=== PATIENT | female | born 1960 | race Caucasian/White ===

== ENCOUNTER 2019-10-30 16:34 | Emergency (ER) | payer BC, SELFPAY ==
--- NOTE | 2019-10-30 16:38 | ED.EAR ---
HPI - Ear Problem General Chief complaint: Ear Stated complaint: ear pain Time Seen by Provider: 10/30/19 16:38 Source: patient and RN notes reviewed Mode of arrival: ambulatory Limitations: no limitations History of Present Illness HPI Narrative: The obese patient-- a non-smoker/ rare drinker on several meds including insulin-- presents with left ear discomfort. Patient states she has a week and a half history of mild left ear discomfort by tragus. Symptoms are mild, slightly worse with palpation, unrelieved with previous called in Z-pack. No fever, URI/sinusitis, bruxism/ teeth grind, TMJ pain, toothache, parotid pain, discharge, tinnitus, vertigo, headache; discussed will treat broadly [for above causes] Related Data Home Medications Medication Instructions Recorded Confirmed cholecalciferol (vitamin D3) 10 mcg PO DAILY 10/30/19 10/30/19 [Vitamin D3] empagliflozin-metformin [Synjardy 1 ea PO DAILY 10/30/19 10/30/19 XR] Allergies Allergy/AdvReac Type Severity Reaction Status Date / Time adhesive tape Allergy Intermediate RASH Verified 09/15/19 15:56 latex Allergy Unknown Unknown Verified 09/15/19 15:56 levofloxacin Allergy Unknown Unknown Verified 09/15/19 15:56 penicillin G Allergy Unknown Unknown Verified 09/15/19 15:56 Penicillins Allergy Unknown Unknown Verified 09/15/19 15:56 Sulfa (Sulfonamide Allergy Unknown Unknown Verified 09/15/19 15:56 Antibiotics) Review of Systems Review of Systems: Narrative: General/Constitutional: No weight loss,fever Eyes: N0: Redness,discharge Ears/Nose/Throat: No: Epistaxis,ear discharge Respiratory: Denies: Hemoptysis Gastrointestinal: No Vomiting, Bleeding-rectal Skin: No Lumps, eruption Neurologic: No Focal Weakness,Sz Hematologic: Denies: Petechiae/Purpura Psychiatric: No: Suicida ideationl All Other Systems: Reviewed and Negative PMFSH Social History Social History Smoking status: Never smoker Alcohol intake: never Comments At time of signature, agree with nursing past medical, surgical, social and family history. There is no relevant family history pertinent to the presenting complaint Exam Narrative: Exam Narrative: General Appearance: Well appearing, Obese/ Well nourished, No distress EYE: PERRLA , EOMI Ears: External ear normal, TM's benign Auditory canal normal dry Nose: Normal nose, Nares clear Mouth/Throat: Normal appearing, Normal lips, parotid/ glands nontender Neck: Supple, No adenopathy Respiratory: Airway patent, No respiratory distress Skin: Warm, Dry Neurological: A&O x3, CN II-X intact Psychiatric: Normal mood, Normal affect general Course Vital Signs Vital signs: Vital Signs Temperature 98.5 F 10/30/19 16:43 Pulse Rate 87 10/30/19 16:43 Respiratory Rate 20 10/30/19 16:43 Blood Pressure 126/70 10/30/19 16:43 Pulse Oximetry 97 10/30/19 16:43 Temperature 98.5 F 10/30/19 16:43 Pulse Rate 87 10/30/19 16:43 Respiratory Rate 20 10/30/19 16:43 Blood Pressure 126/70 10/30/19 16:43 Pulse Oximetry 97 10/30/19 16:43 Medical Decision Making Vital Signs Vital Signs: Vital Signs Temperature 98.5 F 10/30/19 16:43 Pulse Rate 87 10/30/19 16:43 Respiratory Rate 20 10/30/19 16:43 Blood Pressure 126/70 10/30/19 16:43 Pulse Oximetry 97 10/30/19 16:43 Temperature 98.5 F 10/30/19 16:43 Pulse Rate 87 10/30/19 16:43 Respiratory Rate 20 10/30/19 16:43 Blood Pressure 126/70 10/30/19 16:43 Pulse Oximetry 97 10/30/19 16:43 Discharge Plan Discharge Clinical Impression: Otalgia, left ear Patient Disposition: Home, Self-Care Condition: Stable Instructions: Antibiotic Form, Otitis Externa (ED) Prescriptions: New ciprofloxacin HCl 250 mg tablet 250 mg PO Q12H Qty: 10 RF: 0 tramadol 50 mg tablet 50 mg PO Q6H PRN (Reason: pain) Qty: 15 RF: 1 ciprofloxacin HCl 0.3 % drops
[2019-10-30 16:43] VITALS: BP 126/70; PULSE 87; RESP 20; TEMP 36.9; O2SAT 97
== END 2019-10-30 17:25 | disposition home or self-care (01) ==
PROVIDERS: Emergency Provider Emergency Medicine; PCP Family Medicine
DX: H92.02 Otalgia, left ear (principal); E78.00 Pure hypercholesterolemia, unspecified; I10 Essential (primary) hypertension; J45.909 Unspecified asthma, uncomplicated; G47.30 Sleep apnea, unspecified; M19.90 Unspecified osteoarthritis, unspecified site; E11.9 Type 2 diabetes mellitus without complications; F41.9 Anxiety disorder, unspecified
CPT/HCPCS: 99213; G0463

== ENCOUNTER 2020-05-22 10:49 | Outpatient (CLI) | payer BC, SELFPAY ==
[2020-05-22 11:21] LABS: Hematocrit 44.9 % (37.0-47.0)
--- NOTE | 2020-05-22 11:29 | ECG_ITS ---
Measurements Intervals [place] Rate: 71 P: 61 PA: 201 QRS: 19 QRSD: 103 T: 66 QT: 409 QTc: 446 Interpretive Statements SINUS RHYTHM BORDERLINE AV CONDUCTION DELAY BORDERLINE R WAVE PROGRESSION, ANTERIOR LEADS CONSIDER INFERIOR INFARCT, AGE INDETERMINATE BORDERLINE ST-T WAVE ABNORMALITY- HIGH LATERAL LEADS BASELINE WANDER- I, II, III, AVR, AVL, AVF ABNORMAL ECG Electronically Signed On 05-22-2020 11:58:23 CDT by Ashkan Frye D.O.
[2020-05-22 11:32] LABS: Albumin Level 4.6 g/dL (3.5-5.1); Estimated Glomerular Filt Rate > 60; Glucose 109 mg/dL (65-105)
[2020-05-22 11:34] LABS: Urine Cotinine NEGATIVE
[2020-05-22 11:34] LABS: Hemoglobin A1C 6.9 % (<5.7)
== END 2020-05-22 10:50 | disposition home or self-care (01) ==
PROVIDERS: PCP Family Medicine; Visit Provider Orthopaedic Surgery
DX: E78.2 Mixed hyperlipidemia (principal); I10 Essential (primary) hypertension; E11.9 Type 2 diabetes mellitus without complications; M17.11 Unilateral primary osteoarthritis, right knee
CPT/HCPCS: 80307; 82040; 82565; 82947; 83036; 85014; 85018; 93005

== ENCOUNTER 2020-06-01 11:48 | Outpatient (CLI) | payer BC, SELFPAY ==
[2020-06-01 13:03] LABS: Basophils Absolute Auto 0.1 K/mm3 (0.0-0.1); Basophils Percent Auto 0.7 % (0.2-1.2); Eosinophils Absolute Auto 0.3 K/mm3 (0-0.3); Eosinophils Percent Auto 2.2 % (0-4.4); Hematocrit 42.1 % (37.0-47.0); Immature Granulocyte Absolute 0.05 K/mm3 (0.00-0.031); Immature Granulocyte Percent A 0.4 % (0-0.5); Lymphocytes Absolute Auto 3.31 K/mm3 (0.9-3.2); Lymphocytes Percent Auto 24.9 % (18.3-44.2); Mean Corpuscular HGB Conc 33.3 g/dl (32-36); Mean Corpuscular Hemoglobin 32.1 pg (26-34); Mean Corpuscular Volume 96.6 fl (80-100); Mean Platelet Volume 8.9 fl (7.4-10.4); Monocytes Absolute Auto 0.9 K/mm3 (0.1-0.6); Neutrophils Absolute Auto 8.6 K/mm3 (1.3-6.7); Neutrophils Percent Auto 64.8 % (45.5-73.1); Platelet Count Result 295 k/mm3 (150-375); Red Blood Count 4.36 M/mm3 (4.2-5.4); Red Cell Distribution Width 12.4 % (11.5-14.5); White Blood Count 13.3 K/mm3 (4.5-10.0)
[2020-06-01 13:17] LABS: Anion Gap 7 mmol/L (8-16); Blood Urea Nitrogen 25 mg/dL (7-17); Calcium 9.6 mg/dL (8.4-10.2); Carbon Dioxide 27 mmol/L (22-30); Chloride 103 mmol/L (98-107); Estimated Glomerular Filt Rate > 60; Glucose 84 mg/dL (65-105); Potassium 4.6 mmol/L (3.4-5.0); Sodium 137 mmol/L (137-145)
== END 2020-06-01 11:49 | disposition home or self-care (01) ==
LOC: ANHSURGERY 11:52
PROVIDERS: Anesthesiology; PCP Family Medicine; Visit Provider Orthopaedic Surgery
DX: M17.11 Unilateral primary osteoarthritis, right knee (principal); E11.65 Type 2 diabetes mellitus with hyperglycemia; Z01.818 Encounter for other preprocedural examination
CPT/HCPCS: 36415; 80048; 85025; 86850; 86900; 86901; 87081

== ENCOUNTER 2020-07-17 09:14 | Outpatient (CLI) | payer BC, SELFPAY ==
[2020-07-17 09:55] LABS: Anion Gap 4 mmol/L (8-16); Blood Urea Nitrogen 9 mg/dL (7-17); Calcium 9.2 mg/dL (8.4-10.2); Carbon Dioxide 33 mmol/L (22-30); Chloride 104 mmol/L (98-107); Cholesterol 158 mg/dL (0-200); Estimated Glomerular Filt Rate > 60; Glucose 103 mg/dL (65-105); HDL Direct 51 mg/dL; Potassium 4.7 mmol/L (3.4-5.0); Sodium 141 mmol/L (137-145); Triglycerides 143 mg/dL (<150)
[2020-07-17 10:05] LABS: LDL Cholesterol Direct 79 mg/dL
== END 2020-07-17 09:15 | disposition home or self-care (01) ==
LOC: ANHLAB 09:16
PROVIDERS: PCP Family Medicine; Visit Provider Physician Assistant
DX: E11.65 Type 2 diabetes mellitus with hyperglycemia (principal); E78.5 Hyperlipidemia, unspecified
CPT/HCPCS: 36415; 80048; 80061; 84443

== ENCOUNTER 2020-08-23 09:55 | Outpatient (CLI) | payer BC, SELFPAY ==
[2020-08-23 11:07] LABS: Basophils Absolute Auto 0.1 K/mm3 (0.0-0.1); Basophils Percent Auto 0.6 % (0.2-1.2); Eosinophils Absolute Auto 0.3 K/mm3 (0-0.3); Eosinophils Percent Auto 3.4 % (0-4.4); Hematocrit 44.9 % (37.0-47.0); Hemoglobin 14.6 g/dL (12.0-15.0); Immature Granulocyte Absolute 0.02 K/mm3 (0.00-0.031); Immature Granulocyte Percent A 0.2 % (0-0.5); Lymphocytes Absolute Auto 2.31 K/mm3 (0.9-3.2); Lymphocytes Percent Auto 26.5 % (18.3-44.2); Mean Corpuscular HGB Conc 32.5 g/dl (32-36); Mean Corpuscular Hemoglobin 30.9 pg (26-34); Mean Corpuscular Volume 95.1 fl (80-100); Monocytes Absolute Auto 0.6 K/mm3 (0.1-0.6); Monocytes Percent Auto 6.5 % (2.6-8.5); Neutrophils Absolute Auto 5.5 K/mm3 (1.3-6.7); Neutrophils Percent Auto 62.8 % (45.5-73.1); Platelet Count Result 300 k/mm3 (150-375); Red Blood Count 4.72 M/mm3 (4.2-5.4); Red Cell Distribution Width 12.8 % (11.5-14.5); White Blood Count 8.7 K/mm3 (4.5-10.0)
[2020-08-23 11:27] LABS: Albumin Level 4.2 g/dL (3.5-5.1)
[2020-08-23 11:30] LABS: Hemoglobin A1C 5.2 % (<5.7)
[2020-08-23 13:37] LABS: Urine Cotinine NEGATIVE
== END 2020-08-23 09:56 | disposition home or self-care (01) ==
LOC: ANHSURGERY 09:58
PROVIDERS: PCP Family Medicine; Visit Provider Orthopaedic Surgery
DX: M17.11 Unilateral primary osteoarthritis, right knee (principal); Z51.81 Encounter for therapeutic drug level monitoring; Z79.899 Other long term (current) drug therapy
CPT/HCPCS: 80307; 82040; 83036; 85025; 86850; 86900; 86901; 87081

== ENCOUNTER → 2020-09-02 00:31 | Outpatient (CLI) | payer BC, SELFPAY ==
[2020-09-02 20:39] LABS: SARS-CoV-2 RNA PCR Negative
== END ==
PROVIDERS: PCP Family Medicine; Visit Provider Orthopaedic Surgery
DX: Z01.812 Encounter for preprocedural laboratory examination (principal); Z20.822 Contact with and (suspected) exposure to COVID-19
CPT/HCPCS: C9803; U0003; U0005

== ENCOUNTER 2020-09-05 01:45 | Day surgery (SDC) | payer BC, SELFPAY ==
[2020-06-01 12:00] VITALS: BMI 38.4
[2020-06-01 12:17] VITALS: BP 106/52; PULSE 72; RESP 20; TEMP 36.6; O2SAT 98
--- NOTE | 2020-06-01 12:49 | PC.NURSE ---
PT HERE FOR PRE-OP INTERVIEW, MENTIONED UPPER TOOTH EXTRACTED 01/19/20 AND WAS AT THE DENTIST 05/29/20 FOR PROCEDURE ON THE SOCKET - DENTIST DR. TURNER OFFICE CALLED SPOKE WITH GIUSEPPENA - STATES PT TOOK CLINDAMYCIN PROPHYLACTICALLY AND ROOT CANNEL STARTED WITH PT TO CALL BACK AFTER KNEE SURGERY FOR COMPLETION. DR. BYRNES'S OFFICE CALLED AND SPOKE WITH AILEEN AND INFORMED OF ABOVE - STATES WILL INFORM DR. BYRNES AND WILL CONTACT PT. PT INFORMED DR. BYRNES'S OFFICE WILL BE CALLING IN REGARDS TO PROCEEDING OR POSTPONING SURGERY - UNDERSTANDING VOICED.
[2020-08-23 10:04] VITALS: BMI 37.3
[2020-08-23 10:41] VITALS: BP 125/63; PULSE 72; RESP 16; TEMP 36.6; O2SAT 98
--- NOTE | 2020-09-04 10:58 | WPDANESEPPF ---
Anes - Initial Pre Proc Eval Procedure: Operation Date: 09/05/20 07:30 Proposed Procedures p Right Total Knee Arthroplasty - Kurt Hutchins MD Date/Time: 09/04/20 10:58 Surgeon: Kurt Hutchins MD Pre Op Diagnosis: DJD right knee Patient Data Age: 60 Gender: F Height: 1.65 m Weight: 101.9 kg Last Vital Signs Temp 36.6 C 08/23/20 10:41 Pulse 72 08/23/20 10:41 Resp 16 08/23/20 10:41 BP 125/63 08/23/20 10:41 Pulse Ox 98 08/23/20 10:41 Allergies Allergy/AdvReac Type Severity Reaction Status Date / Time adhesive tape Allergy Intermediate RASH Verified 09/05/20 06:58 levofloxacin Allergy Unknown Nausea and Verified 09/05/20 06:58 Vomiting Penicillins Allergy Unknown Unknown - Verified 09/05/20 06:58 A CHILD Home Medications Medication Instructions Recorded Confirmed Type rosuvastatin 20 mg tablet 20 mg PO DAILY #90 tablet 03/30/20 09/05/20 Rx lisinopril 10 mg tablet 10 mg PO DAILY 90 Days #90 tablet 05/10/20 09/05/20 Rx apple cider vinegar 450 mg PO DAILY 06/01/20 09/05/20 History magnesium 400 mg PO DAILY 06/01/20 09/05/20 History Ozempic 1 mg/dose (2 mg/1.5 mL) 1 mg SUB-Q WEEKLY 90 Days #9 ml NS 07/19/20 09/05/20 Rx subcutaneous pen injector Tresiba FlexTouch U-200 200 130 unit SUBCUT QPM 90 Days #63 ml 07/19/20 09/05/20 Rx unit/mL (3 mL) subcutaneous pen NS pen needle, diabetic 32 gauge x #200 ea 07/19/20 08/24/20 Rx 1/4 empagliflozin 12.5 mg-metformin ER 2 tablet PO QAM 90 Days #180 each 07/25/20 09/05/20 Rx 1,000 mg tablet,extended rel 24 hr cholecalciferol (vitamin D3) 100 mcg PO DAILY 08/23/20 09/05/20 History citalopram 40 mg PO QAM 08/23/20 09/05/20 History ibuprofen 800 mg PO Q6H PRN 08/23/20 09/05/20 History Patient hx anesthesia problems: none Family hx anesthesia problems: none PMFSH Past Medical History Medical History (Updated 09/04/20 @ 11:00 by Servando Katz MD) Essential hypertension Fatty liver Hyperlipidemia, unspecified Mixed hyperlipidemia Morbid obesity YURIY on CPAP Osteoarthritis of right knee Type 2 diabetes mellitus with hyperglycemia Type 2 diabetes mellitus without complications Surgical History Surgical History Status post total knee replacement, left Family History Family History Father Hypertension Family history of diabetes mellitus in first degree relative Family history of congenital heart disease Family history of arthritis Mother Hypertension Family history of diabetes mellitus in first degree relative Family history of malignant neoplasm of kidney Family history of malignant neoplasm of uterus Family history of arthritis Family history of malignant neoplasm Sibling Family history of kidney disease Family history of diabetes mellitus in first degree relative Family history of malignant neoplasm of uterus Family history of arthritis Family history of malignant neoplasm Other Diabetes mellitus Family history of Alzheimer's disease Family history of attention deficit hyperactivity disorder (ADHD) Family history of cardiovascular disease Family history of elevated blood lipids Family history of migraine headaches Family history of obesity Family history of thyroid disease Social History Social History Smoking status: Never smoker Additional smoking assessment comments: DENIES ANY FORM OF TOBACCO USE Alcohol intake: never Alcohol use details: 2 DRINKS PER MONTH Substance use: never Substance use type: does not use Living arrangements: with family Spiritual care concerns: No Anes - Eval Final PreProcedure Day of Procedure 09/04/20 10:58 Patient weight: obese Heart: regular rate and rhythm Lungs: clear to auscultation and normal air movement Airway: Mallampati scale class II Neurologic
--- NOTE | 2020-09-04 11:00 | WPDANESPNB ---
Anes - Peripheral Nerve Block Date/Time: 09/04/20 11:00 I have discussed with the patient/family/POA the placement of a peripheral nerve block for post-operative pain management, including associated risks, benefits, complications, and side effects. Alternative methods of post-operative analgesia were detailed. Questions were solicited and answers provided to the satisfaction of the patient/family/POA. Time-Out: A pre-procedural Time-Out was completed immediately before starting the procedure and confirmed: Patient Identification, Site, Procedure, Patient Position and the Availability of Requisite Equipment. Clinical Indications: Acute post-operative pain management requested by the operative surgeon. Nerve Block Insertion Note Anes-nerve block: adductor canal right Patient position: supine Skin prep: chlorhexidine Needle: 22 gauge, stimulating, insulated echogenic needle. Needle length: 80 mm Technique: ultrasound Technique comment: in plane Injectate: bupivacaine 0.5% with epi 5 mcg/ml (30cc) Observations: tolerated well Complications: none Procedure start time:: 715 Procedure end time::
[2020-09-05] VITALS (15 sets, daily range): BP systolic 100–120; BP diastolic 58–71; PULSE 69–94; RESP 14–21; TEMP 35.8–36.7; O2SAT 93–100; BMI 38.9
--- NOTE | ~2020-09-05 | XR_ITS ---
EXAMINATION: XR knee RT 2V DATE: 09/05/2020 09:56 INDICATION: Total right knee arthroplasty. Postop. TECHNIQUE: 2 views of right knee were obtained. COMPARISON: Right knee radiographs 05/22/2020 FINDINGS: There is a total right knee arthroplasty in near-anatomic alignment with patellar resurfaci ng. No fracture. There is gas in the soft tissues, consistent with recent surgery. IMPRESSION: 1. Total right knee arthroplasty in near-anatomic alignment. Reviewed, dictated and finalized at location A. ATER
[2020-09-05] MEDS: ACETAMINOPHEN 500 MG TABLET 1000 MG PO (06:38)
[2020-09-05] MEDS: LACTATED RINGERS 1,000 ML 30 ML IV CONT ×2 (06:45→09:43)
[2020-09-05] MEDS: TRANEXAMIC ACID 1,000MG/ISO100 1,000 MG/100 ML BAG 200 MG IVPB (06:47)
[2020-09-05 06:52] LABS: Glucose Point of Care 107 (65-105)
--- NOTE | 2020-09-05 07:13 | WPDHPUPDATE1 ---
History and Physical Update Update Date/Time: 09/05/20 07:13 History and Physical has been reviewed, including an updated exam of the patient. There are NO changes in the patient's condition. Risks, benefits, and alternatives have been discussed and questions answered. Patient agrees to proceed with procedure.
[2020-09-05] MEDS: CLINDAMYCIN 900 MG/D5W 50 ML 900 MG/50 ML PIGGYBACK 50 MG IVPB (07:26)
[2020-09-05] MEDS: GENTAMICIN BONE CEMENT REFOBACIN 1 EACH TOPICAL (08:50)
--- NOTE | 2020-09-05 09:52 | PM.PROC ---
Procedure Note - Detailed Date of procedure: 09/05/20 Pre-op diagnosis: DJD right knee Post-op diagnosis: same Procedure performed: Total knee arthroplasty, right. Description of procedure: Severe patellofemoral arthritis. Mild patellofemoral dysplasia. Patella was very thin laterally but thicker medially. This allowed for very conservative patellar resection. The Tritanium 3D printed porous implant was used to minimize stress risers. This matched the procedure on the contralateral knee which is performing very well. Bone quality was satisfactory. Standard bone resections were performed. The tibia resection was conservative as the patient was quite lax without any contractures preoperatively. Implants: Silvestre Triathlon size 3 press-fit femur, size 4 cemented low-profile tibia, 11 mm CR polyethylene insert, 29 mm asymmetric Tritanium metal backed patellar component. Anesthesia: GETA and regional (subsartorial nerve block) Surgeon: Kurt Hutchins MD Ride Operator: Yuliana Aguirre PA-C Estimated blood loss (mL): 200 Drains: No Complications: None Condition: stable Disposition: PACU Findings: Physician bindery assistant, Yuliana Aguirre PA-C, required for surgery; including patient positioning, draping, tissue retraction, maintaining instrument position, cement removal, wound closure, and dressing placement. OPERATIVE DETAILS: The patient was given a nerve block preoperatively, and then brought to the operating room. A general anesthetic was administered. The leg was prepped and draped in the usual sterile fashion. The limb was elevated and the tourniquet inflated to 300 mmHg during initial exposure, and cementation. A longitudinal incision was created along the medial border of the patella and patellar tendon, and a minimally invasive optimized mid-vastus approach to the knee was performed. A mild medial release was taken. The knee was then flexed. The osteophytes were carefully removed. The intramedullary guide was placed in the femoral canal. The distal femoral resection was then taken with the oscillating saw. The collateral ligaments were carefully protected. The tibia was carefully exposed. The jig was applied, and the proximal tibia was resected according to preoperative plan. The knee was balanced in extension. Appropriate releases were taken where needed. The anterior cruciate ligament and meniscal remnants were removed. The posterior cruciate ligament was preserved. The patella was measured. Patellar resection was carried out with the oscillating saw. The lug holes drilled. The femur was sized and rotation assessed using a combination of gap balancing, posterior referencing, and the AP axis. The 4 in 1 cutting block was used to finish the femoral cuts after equal gaps were assured. The lug holes were drilled. The osteophytes were carefully removed from the back of the knee. The knee was copiously irrigated with antibiotic solution periodically throughout the procedure. The meniscal remnants were removed. The spacer block was used to confirm equal flexion and extension gaps. Further releases were performed as needed. The tibia was sized and broached. The bony surfaces were prepared for cementing with pulsatile lavage. The real tibial component was cemented into position followed by press fitting the femoral component. Excess cement was carefully removed. The patella component was press-fit. Patellar tracking was carefully assessed. No additional releases were required. The wound was closed with #1 Vycril suture, #2 Quill suture, 0-Quill suture, and 2-0 Quill suture followed by Steri-Strips. A sterile bulky dressing was applied. Meticulous hemostasis was maintained throughout the procedure. There were no complications. The patient was extubated and brought to the recovery room in stable condition after the application of sterile dressing with Gerry bandage.
[2020-09-05] MEDS: fentaNYL CITRATE INJ (*CRX) 100 MCG/2 ML VIAL 25 MCG IV PUSH ×4 (09:54→10:06)
[2020-09-05 09:55] LABS: Glucose Point of Care 104 (65-105)
[2020-09-05] MEDS: HYDROmorphone HCL INJ (*CRX) 1 MG/ML SYR 0.25 MG IV PUSH (10:09)
--- NOTE | 2020-09-05 11:11 | ADMGEN ---
This patient, Carina Molina, was admitted to 2 Medical Room 243-. Patient/family oriented to hospital policies and general routines including ID bracelet, bed and alarms, visiting hours, pain management, procedures, bathroom and other care routines, personal items, smoking policy, room service/diet, and visiting hours. Arrived from surgery via bed, doing well. Information on how to activate the Rapid Response Team has been discussed. Patient/Family are encouraged to report perceived risks to care and to ask questions if they do not understand what they are told or what they should do.
[2020-09-05 11:24] LABS: Glucose Point of Care 96 (65-105)
[2020-09-05] MEDS: ROSUVASTATIN 10 MG TABLET 20 MG PO (12:15)
[2020-09-05] MEDS: lisinopriL 10 MG TABLET PO (12:15)
[2020-09-05] MEDS: oxyCODONE HCL (*CRX) 5 MG TAB IR 10 MG PO ×3 (12:16→22:00)
--- NOTE | 2020-09-05 13:30 | WPDCN ---
Assessment and Plan Assessment and plan (1) Osteoarthritis of right knee: Qualifiers: Osteoarthritis type: primary Qualified Code(s): M17.11 - Unilateral primary osteoarthritis, right knee Code(s): M17.11 - Unilateral primary osteoarthritis, right knee Status: Acute (2) Insulin dependent type 2 diabetes mellitus: Code(s): E11.9 - Type 2 diabetes mellitus without complications; Z79.4 - classics teacher (current) use of insulin Status: Acute (3) Essential hypertension: Code(s): I10 - Essential (primary) hypertension Status: Acute (4) Mixed hyperlipidemia: Code(s): E78.2 - Mixed hyperlipidemia Status: Acute (5) Obstructive sleep apnea on CPAP: Code(s): G47.33 - Obstructive sleep apnea (adult) (pediatric); Z99.89 - Dependence on other enabling machines and devices Status: Acute (6) Depression with anxiety: Code(s): F41.8 - Other specified anxiety disorders Status: Acute (7) History of arthroplasty of right knee: Onset Date: ~09/05/20 Code(s): Z96.651 - Presence of right artificial knee joint Status: Acute Additional Plan The patient is postoperative day #0, status post right total knee replacement per Dr. Hutchins. Wound care and pain control will be deferred to Dr. Hutchins as well as DVT prophylaxis. Her blood pressures were reviewed and they have been stable postoperatively, and her antihypertensives have been resumed. Basal insulin has been resumed as well and she has been started on sliding scale insulin with Accu-Cheks with meals and at bedtime. Check hemoglobin A1c. CPAP will be provided for the patient to use while hospitalized. The rest of her home medications will be reviewed and resumed as appropriate. Thank you for allowing us to participate in this patient's care. Please do not hesitate to contact us with any questions. We will follow with you. Supervising physician for this medical consultation is Dr. Lanny Chambers. HPI Data of Consult Date/Time: 09/05/20 12:30 Requesting Physician: Kurt Hutchins MD Primary Care Provider: Lew Cary MD Consult Narrative Narrative: This is a 60-year-old female with degenerative joint disease, type 2 diabetes mellitus, hypertension, hyperlipidemia, and sleep apnea whom the hospitalist service has been consulted for management of her medical conditions postoperatively. She has had longstanding pain in her right knee, not amenable to conservative outpatient treatment and she elected for replacement today. Her surgery was performed under general anesthesia with sub sartorius nerve block. Estimated blood loss was 200 milliliters. No intraoperative complications were documented. At the time my evaluation she has minimal pain. She has been getting up and about to the bathroom without issue. She denies paresthesias, skin color, temperature changes distal to the surgical site. No fever, chills, chest pain, shortness of breath, nausea, or vomiting. Review of Systems Review of Systems: Narrative: Twelve systems were reviewed with pertinent positives and negatives as per HPI. No recent cold or flu symptoms. She denies cough and shortness of breath. No exposure to those positive for COVID-19. She denies history of venous thromboembolism. She believes her diabetes is well controlled. No blurry vision, polydipsia, or polyuria. Except as documented, all other systems were reviewed and are negative. [facility] Past Medical History Medical History (Updated 09/05/20 @ 13:35 by Halie Barker PA-C) Depression with anxiety Essential hypertension Fatty liver Insulin dependent type 2 diabetes mellitus Mixed hyperlipidemia Morbid obesity Obstructive sleep apnea on CPAP Surgical History Surgical History History of appendectomy History of arthroplasty of left knee (~10/2018) History of arthroplasty of right knee
[2020-09-05 16:45] LABS: Glucose Point of Care 109 (65-105)
[2020-09-05] MEDS: MELOXICAM 7.5 MG TABLET PO (17:40)
[2020-09-05] MEDS: ASPIRIN 81 MG ENTERIC TABLET PO (17:40)
[2020-09-05 21:42] LABS: Glucose Point of Care 155 (65-105)
[2020-09-06 00:31] VITALS: BP 104/42; PULSE 69; RESP 20; TEMP 36.3; O2SAT 99
[2020-09-06] MEDS: oxyCODONE HCL (*CRX) 5 MG TAB IR PO ×2 (02:24→06:30)
[2020-09-06 04:31] VITALS: BP 106/60; PULSE 69; RESP 20; TEMP 36.1; O2SAT 99
[2020-09-06 05:53] LABS: Hemoglobin A1C 5.1 % (<5.7)
[2020-09-06 06:01] LABS: Alanine Aminotransferase 19 U/L (4-35); Albumin Level 3.5 g/dL (3.5-5.1); Alkaline Phosphatase 47 U/L (38-126); Anion Gap 3 mmol/L (8-16); Aspartate Amino Transferase 27 U/L (14-36); Bilirubin,Total 0.4 mg/dL (0.2-1.3); Blood Urea Nitrogen 16 mg/dL (7-17); Calcium 8.6 mg/dL (8.4-10.2); Carbon Dioxide 30 mmol/L (22-30); Chloride 104 mmol/L (98-107); Estimated CRCL calculation 91 ml/min; Estimated Glomerular Filt Rate > 60; Glucose 108 mg/dL (65-105); Potassium 4.3 mmol/L (3.4-5.0); Sodium 137 mmol/L (137-145)
[2020-09-06 06:14] LABS: Basophils Percent Auto 0.2 % (0.2-1.2); Eosinophils Absolute Auto 0.1 K/mm3 (0-0.3); Eosinophils Percent Auto 0.4 % (0-4.4); Hematocrit 37.3 % (37.0-47.0); Hemoglobin 11.8 g/dL (12.0-15.0); Immature Granulocyte Absolute 0.05 K/mm3 (0.00-0.031); Immature Granulocyte Percent A 0.3 % (0-0.5); Lymphocytes Absolute Auto 2.68 K/mm3 (0.9-3.2); Lymphocytes Percent Auto 18.4 % (18.3-44.2); Mean Corpuscular HGB Conc 31.6 g/dl (32-36); Mean Corpuscular Hemoglobin 31.2 pg (26-34); Mean Corpuscular Volume 98.7 fl (80-100); Mean Platelet Volume 9.6 fl (7.4-10.4); Monocytes Absolute Auto 1.3 K/mm3 (0.1-0.6); Monocytes Percent Auto 8.6 % (2.6-8.5); Neutrophils Absolute Auto 10.5 K/mm3 (1.3-6.7); Neutrophils Percent Auto 72.1 % (45.5-73.1); Platelet Count Result 269 k/mm3 (150-375); Red Blood Count 3.78 M/mm3 (4.2-5.4); Red Cell Distribution Width 12.8 % (11.5-14.5); White Blood Count 14.5 K/mm3 (4.5-10.0)
[2020-09-06] MEDS: CYCLOBENZAPRINE HCL 10 MG TABLET PO (07:11)
--- NOTE | 2020-09-06 07:31 | WPDANESPN ---
Anes - Prog Note Post-Op Date/Time: 09/06/20 07:31 Cardiovascular status: normal Respiratory status: normal Airway patency: baseline Mental status: baseline Post-Op hydration status: normal Vital Signs: Last Vital Signs Temp 36.3 C L 09/06/20 00:31 Pulse 69 09/06/20 00:31 Resp 20 09/06/20 00:31 BP 104/42 L 09/06/20 00:31 Pulse Ox 99 09/06/20 00:31 Pain Score (VAS): 0 I/O: Intake & Output 09/05/20 09/05/20 09/06/20 15:59 23:59 07:59 Intake Total 460 1370 50 Output Total 700 Balance 460 670 50 Laboratory Tests 09/06/20 05:09 09/06/20 05:09 09/05/20 09/05/20 09/05/20 09:47 11:15 16:13 WBC RBC Hgb Hct MCV MCH MCHC RDW Plt Count MPV Immature Gran % (Auto) Neut % (Auto) Lymph % (Auto) Toole % (Auto) Eos % (Auto) Baso % (Auto) Lymph # (Auto) Toole # (Auto) Eos # (Auto) Baso # (Auto) Abs Immat Gran (auto) Absolute Neuts (auto) Absolute Nucleated RBC Nucleated RBC % Sodium Potassium Chloride Carbon Dioxide Anion Gap BUN Creatinine Estim Creat Clear Calc Estimated GFR Glucose POC Capillary Glucose 104 96 109 Hemoglobin A1c Calcium Total Bilirubin Direct Bilirubin AST ALT Alkaline Phosphatase Total Protein Albumin 09/05/20 09/06/20 09/06/20 20:05 05:09 05:09 WBC 14.5 H RBC 3.78 L Hgb 11.8 L Hct 37.3 MCV 98.7 MCH 31.2 MCHC 31.6 L RDW 12.8 Plt Count 269 MPV 9.6 Immature Gran % (Auto) 0.3 Neut % (Auto) 72.1 Lymph % (Auto) 18.4 Toole % (Auto) 8.6 H Eos % (Auto) 0.4 Baso % (Auto) 0.2 Lymph # (Auto) 2.68 Toole # (Auto) 1.3 H Eos # (Auto) 0.1 Baso # (Auto) 0.0 Abs Immat Gran (auto) 0.05 H Absolute Neuts (auto) 10.5 H Absolute Nucleated RBC 0.0 Nucleated RBC % 0.0 Sodium 137 Potassium 4.3 Chloride 104 Carbon Dioxide 30 Anion Gap 3 L BUN 16 Creatinine 0.70 Estim Creat Clear Calc 91 Estimated GFR > 60 Glucose 108 H POC Capillary Glucose 155 H Hemoglobin A1c Calcium 8.6 Total Bilirubin 0.4 Direct Bilirubin 0.0 AST 27 ALT 19 Alkaline Phosphatase 47 Total Protein 7.0 Albumin 3.5 09/06/20 05:09 WBC RBC Hgb Hct MCV MCH MCHC RDW Plt Count MPV Immature Gran % (Auto) Neut % (Auto) Lymph % (Auto) Toole % (Auto) Eos % (Auto) Baso % (Auto) Lymph # (Auto) Toole # (Auto) Eos # (Auto) Baso # (Auto) Abs Immat Gran (auto) Absolute Neuts (auto) Absolute Nucleated RBC Nucleated RBC % Sodium Potassium Chloride Carbon Dioxide Anion Gap BUN Creatinine Estim Creat Clear Calc Estimated GFR Glucose POC Capillary Glucose Hemoglobin A1c 5.1 Calcium Total Bilirubin Direct Bilirubin AST ALT Alkaline Phosphatase Total Protein Albumin Post-procedural complaints: none Patient Feedback: Patient satisfied with anesthetic care.
[2020-09-06 07:55] LABS: Glucose Point of Care 80 (65-105)
--- NOTE | 2020-09-06 09:37 | PM.IMPN ---
Progress Note: A&P Assessment and Plan (1) Osteoarthritis of right knee: Qualifiers: Osteoarthritis type: primary Qualified Code(s): M17.11 - Unilateral primary osteoarthritis, right knee Code(s): M17.11 - Unilateral primary osteoarthritis, right knee Status: Acute Assessment and Plan: POD 1 right total knee arthroplasty per Dr. Hutchins. Patient appears to be doing well post operatively. Post op care, pain management, PT/OT, DVT ppx per primary service Monitor Medically okay for discharge once okay from primary service (2) Insulin dependent type 2 diabetes mellitus: Code(s): E11.9 - Type 2 diabetes mellitus without complications; Z79.4 - emt intermediate (current) use of insulin Status: Acute Assessment and Plan: BGL on low side yesterday today ranging from 80s-150s. Most home medications are NF. A1c 5.1 Accuchecks ACHS, hypoglycemia protocol, correctional insulin, diabetic diet Will reduce long acting insulin to half normal dose given well controlled sugars Hold NF home meds Instructed patient to monitor blood sugars at home and adjust medications as she normally is instructed to if she is hypoglycemic at home Monitor BGL (3) Essential hypertension: Code(s): I10 - Essential (primary) hypertension Status: Acute Assessment and Plan: BP on softer side with most recent 100s sys Hold lisinopril for now Instructed patient to hold for a few days after discharge until BP has improved Monitor (4) Mixed hyperlipidemia: Code(s): E78.2 - Mixed hyperlipidemia Status: Acute Assessment and Plan: LFTs WNL Continue statin (5) Obstructive sleep apnea on CPAP: Code(s): G47.33 - Obstructive sleep apnea (adult) (pediatric); Z99.89 - Dependence on other enabling machines and devices Status: Acute Assessment and Plan: CPAP continues (6) Depression with anxiety: Code(s): F41.8 - Other specified anxiety disorders Status: Acute Assessment and Plan: Continue home medications Additional Plan Thank you for allowing the Hospitalist team to care for this patient during their stay. We will continue to follow with you. Please call with any questions Subjective Date/time seen: 09/06/20 09:37 This is a Hospitalist Consult Progress Note Interval history: Patient is a 60 yo F with history of IDDM, HLD, YURIY, HTN, depression/anxiety, and OA who is s/p right total knee arthroplasty; POD [address] Hutchins. Hospitalist service has been consulted for medical management of comorbid conditions. Patient states she is doing well today. She think her nerve block is now wearing off on the right leg as her right thigh muscles are in a bit more pain and stiff today. Otherwise, she has full sensation in b/l LE. She is tolerating PO and having BMs. She did notice a bit of a transient sharp right chest pain associated just prior to therapy that she thinks is some anxiety; no current pain and has lessoned in frequency since yesterday. This morning, she did notice she got wooziness similar to when she typically has hypoglycemic episodes at home, but was reassured when her sugar was in the low 100s. She also notes her BP typically runs on low side of normal. Denies f/c/s, headaches, dizziness, lightheadedness, current cp/palpitations, sob/cough, n/v/d/c, abd pain, dysuria, hematuria, cloudy urine, b/l calf pain/swelling. Review of Systems Review of Systems: All systems reviewed & are unremarkable except as noted in HPI and below Exam Narrative: Exam Narrative: General: Patient resting supine in bed in no acute distress. Therapy in room working with patient HEENT: Normocephalic, EOMI, mask over face Cardiovascular: Rate and rhythm are regular. No notable mur
[2020-09-06 09:45] VITALS: BP 109/51; PULSE 77; RESP 18; O2SAT 99
[2020-09-06] MEDS: ROSUVASTATIN 10 MG TABLET 20 MG PO (09:47)
[2020-09-06] MEDS: MAGNESIUM OXIDE 400 MG TABLET PO (09:48)
[2020-09-06] MEDS: CHOLECALCIFEROL 1,000 UNITS TABLET 4000 UNITS PO (09:48)
[2020-09-06] MEDS: CITALOPRAM HYDROBROMIDE 20 MG TABLET 40 MG PO (09:48)
--- NOTE | 2020-09-06 09:50 | PC.NURSE ---
call to pharm for missing meds
[2020-09-06 10:00] VITALS: BP 121/55; PULSE 72; RESP 18; TEMP 36.4; O2SAT 99
--- NOTE | 2020-09-06 10:23 | PM.DS ---
DS: Admitting Diagnosis Admitting Diagnosis Admitting Diagnosis: osteoarthritis right knee. DS: Discharge Diagnosis Discharge Diagnosis (1) History of arthroplasty of right knee: Onset Date: ~09/05/20 Code(s): Z96.651 - Presence of right artificial knee joint Status: Acute DS: Summary Hospital Course Reason for hospitalization: Total knee arthroplasty. Hospital Course: Tolerated surgery well. Progressed appropriately with therapy. Status at Discharge Functional status at discharge: uses cane/walker Overall status at discharge: patient is progressing back to baseline Time Spent with Patient Time attestation: Total time spent providing and/or coordinating discharge services: Exam Const: General: no acute distress Resp: Effort & Inspection: normal respiratory effort Skin: Other: Wound healing well. Mepilex dressing intact. No hematoma or drainage. Neuro: Motor exam (neuro): 5/5 motor strength present throughout Sensory Exam: normal sensation Psych: Mental Status: mental status grossly normal Speech and movement: Normal speech and movement present DS: Data Data Completed and Pending Labs on day of discharge: Labs from last 24 hours 09/06/20 09/06/20 09/06/20 07:41 05:09 05:09 WBC RBC Hgb Hct MCV MCH MCHC RDW Plt Count MPV Immature Gran % (Auto) Neut % (Auto) Lymph % (Auto) [place] % (Auto) Eos % (Auto) Baso % (Auto) Lymph # (Auto) [place] # (Auto) Eos # (Auto) Baso # (Auto) Abs Immat Gran (auto) Absolute Neuts (auto) Absolute Nucleated RBC Nucleated RBC % Sodium 137 Potassium 4.3 Chloride 104 Carbon Dioxide 30 Anion Gap 3 L BUN 16 Creatinine 0.70 Estim Creat Clear Calc 91 Estimated GFR > 60 Glucose 108 H POC Capillary Glucose 80 Hemoglobin A1c 5.1 Calcium 8.6 Total Bilirubin 0.4 Direct Bilirubin 0.0 AST 27 ALT 19 Alkaline Phosphatase 47 Total Protein 7.0 Albumin 3.5 09/06/20 09/05/20 09/05/20 05:09 20:05 16:13 WBC 14.5 H RBC 3.78 L Hgb 11.8 L Hct 37.3 MCV 98.7 MCH 31.2 MCHC 31.6 L RDW 12.8 Plt Count 269 MPV 9.6 Immature Gran % (Auto) 0.3 Neut % (Auto) 72.1 Lymph % (Auto) 18.4 [place] % (Auto) 8.6 H Eos % (Auto) 0.4 Baso % (Auto) 0.2 Lymph # (Auto) 2.68 [place] # (Auto) 1.3 H Eos # (Auto) 0.1 Baso # (Auto) 0.0 Abs Immat Gran (auto) 0.05 H Absolute Neuts (auto) 10.5 H Absolute Nucleated RBC 0.0 Nucleated RBC % 0.0 Sodium Potassium Chloride Carbon Dioxide Anion Gap BUN Creatinine Estim Creat Clear Calc Estimated GFR Glucose POC Capillary Glucose 155 H 109 Hemoglobin A1c Calcium Total Bilirubin Direct Bilirubin AST ALT Alkaline Phosphatase Total Protein Albumin 09/05/20 11:15 WBC RBC Hgb Hct MCV MCH MCHC RDW Plt Count MPV Immature Gran % (Auto) Neut % (Auto) Lymph % (Auto) [place] % (Auto) Eos % (Auto) Baso % (Auto) Lymph # (Auto) [place] # (Auto) Eos # (Auto) Baso # (Auto) Abs Immat Gran (auto) Absolute Neuts (auto) Absolute Nucleated RBC Nucleated RBC % Sodium Potassium Chloride Carbon Dioxide Anion Gap BUN Creatinine Estim Creat Clear Calc Estimated GFR Glucose POC Capillary Glucose 96 Hemoglobin A1c Calcium Total Bilirubin Direct Bilirubin AST ALT Alkaline Phosphatase Total Protein Albumin Discharge Plan Discharge Patient Disposition: Home, Self-Care Discharge Instructions: Discharge instructions per Hospitalist: Follow up with your PCP and Dr. Hutchins per their instructions Hold taking your lisinopril for the next several days after discharge until your mobility has improved. Check your blood pressure once daily in the morning and record these numbers for your ne
[2020-09-06] MEDS: oxyCODONE HCL (*CRX) 5 MG TAB IR 10 MG PO (10:33)
[2020-09-06] MEDS: MELOXICAM 7.5 MG TABLET PO (11:19)
[2020-09-06] MEDS: ASPIRIN 81 MG ENTERIC TABLET PO (11:20)
--- NOTE | 2020-09-06 11:58 | PC.NURSE ---
Pt discharged home, sent with [employer] pack ice machine, reviewed plan of care and medications, pt doing well with therapy
[2020-09-06 12:34] LABS: Glucose Point of Care 125 (65-105)
== END 2020-09-06 11:57 | disposition home or self-care (01) ==
LOC: ANHSURGERY 06:07 → ANH2MED 10:54
PROVIDERS: Physician Assistant; PCP Family Medicine; Visit Provider Orthopaedic Surgery
PROC: (CPT 27447; principal; 2020-09-05 07:30)
DX: M17.11 Unilateral primary osteoarthritis, right knee (principal); G89.18 Other acute postprocedural pain; I10 Essential (primary) hypertension; E78.2 Mixed hyperlipidemia; K76.0 Fatty (change of) liver, not elsewhere classified; G47.33 Obstructive sleep apnea (adult) (pediatric); E11.9 Type 2 diabetes mellitus without complications; F41.8 Other specified anxiety disorders; E66.01 Morbid (severe) obesity due to excess calories; Z68.39 Body mass index [BMI] 39.0-39.9, adult; Z79.84 Long term (current) use of oral hypoglycemic drugs; Z79.4 Long term (current) use of insulin
CPT/HCPCS: 27447; 64447; 36415; 73560; 80048; 80076; 82948; 83036; 85025; 97110; 97116; 97161; 97165; 97530; 97535; A9270; C1713; C1776; J0171; J0690; J1100; J1170; J1885; J2250; J2270; J2405; J2704; J2795; J3010; J7120

== ENCOUNTER 2020-10-29 10:11 | Emergency (ER) | payer BC, SELFPAY ==
--- NOTE | ~2020-10-29 | US_ITS ---
US venous doppler LE RT DATE: 10/29/2020 11:16 INDICATION: Right lower extremity pain TECHNIQUE: Real-time and color flow imaging and Doppler analysis of the veins of the right lower extr emity COMPARISON: None FINDINGS: The right greater saphenous vein is patent. There is spontaneous and phasic flow and normal augmentation and color flow signal and normal compression of the deep veins of the right leg. IMPRESSION: Negative examination; no evidence of deep venous thrombosis Reviewed, dictated and finalized at [facility]. Reviewed, dictated and finalized at [facility].
--- NOTE | ~2020-10-29 | XR_ITS ---
XR foot RT min 3V DATE: 10/29/2020 11:03 INDICATION: Pain and swelling; no injury. TECHNIQUE: 4 views right foot COMPARISON: 03/25/2015 right foot FINDINGS: Mild plantar calcaneal enthesopathy without associated erosive change or periostitis. There is osteoarthritic spurring at the tibiotalar joint consistent with osteoarthritis. Mild osteoarthritis at the first metatarsophalangeal joint. No fracture, dislocation, periosteal reaction or bone destruction is detected. IMPRESSION: Mild plantar calcaneal enthesopathy Osteoarthritis at the tibiotalar and first metatarsophalangeal joints Reviewed, dictated and finalized at location [facility].
[2020-10-29 10:13] VITALS: BP 109/63; PULSE 68; RESP 16; TEMP 36.2; O2SAT 96
[2020-10-29 11:22] LABS: Basophils Absolute Auto 0.1 K/mm3 (0.0-0.1); Basophils Percent Auto 0.5 % (0.2-1.2); Eosinophils Absolute Auto 0.3 K/mm3 (0-0.3); Eosinophils Percent Auto 3.1 % (0-4.4); Hematocrit 41.5 % (37.0-47.0); Hemoglobin 13.4 g/dL (12.0-15.0); Immature Granulocyte Absolute 0.04 K/mm3 (0.00-0.031); Immature Granulocyte Percent A 0.4 % (0-0.5); Lymphocytes Absolute Auto 2.75 K/mm3 (0.9-3.2); Lymphocytes Percent Auto 25.9 % (18.3-44.2); Mean Corpuscular HGB Conc 32.3 g/dl (32-36); Mean Corpuscular Hemoglobin 30.8 pg (26-34); Mean Corpuscular Volume 95.4 fl (80-100); Mean Platelet Volume 8.9 fl (7.4-10.4); Monocytes Absolute Auto 0.9 K/mm3 (0.1-0.6); Monocytes Percent Auto 8.8 % (2.6-8.5); Neutrophils Absolute Auto 6.5 K/mm3 (1.3-6.7); Neutrophils Percent Auto 61.3 % (45.5-73.1); Platelet Count Result 268 k/mm3 (150-375); Red Blood Count 4.35 M/mm3 (4.2-5.4); Red Cell Distribution Width 13.7 % (11.5-14.5); White Blood Count 10.6 K/mm3 (4.5-10.0)
[2020-10-29 11:37] LABS: Anion Gap 5 mmol/L (8-16); Blood Urea Nitrogen 12 mg/dL (7-17); CRP 0.8 mg/dL (<1.0); Calcium 8.9 mg/dL (8.4-10.2); Carbon Dioxide 29 mmol/L (22-30); Chloride 105 mmol/L (98-107); Estimated CRCL calculation 90 ml/min; Estimated Glomerular Filt Rate > 60; Glucose 96 mg/dL (65-105); Potassium 4.3 mmol/L (3.4-5.0); Sodium 139 mmol/L (137-145); Uric Acid 4.3 mg/dL (2.5-7.5)
[2020-10-29 11:55] LABS: Erythrocyte Sedimentation Rate 26 mm/hr (0-20)
[2020-10-29 13:09] VITALS: BP 106/62; PULSE 65; RESP 18; O2SAT 95
--- NOTE | 2020-10-29 13:25 | ED.GENADULT ---
HPI - General Adult General Chief complaint: Extremity Injury, Lower Stated complaint: right foot swollen Time Seen by Provider: 10/29/20 10:17 Source: patient Mode of arrival: ambulatory Limitations: no limitations History of Present Illness HPI narrative: Patient is a 60-year-old female who presents to emergency department for evaluation of right foot pain localized to the medial aspect at the arch of the foot where she has some swelling and tenderness that began in the middle of the night on patient had had therapy that day and was cleared and is been rehabbing from a total right knee. Patient notes that this pain and swelling is new. Patient denies injury or trauma but notes that she does have severe restless legs and may have struck it in the night. Patient on arrival is in no distress and has been taking hydrocodone with improvement is followed by Dr. Santos Related Data Home Medications Medication Instructions Recorded Confirmed apple cider vinegar 450 mg PO DAILY 06/01/20 09/25/20 magnesium 400 mg PO DAILY 06/01/20 09/25/20 cholecalciferol (vitamin D3) 100 mcg PO DAILY 08/23/20 09/25/20 ibuprofen 800 mg PO Q6H PRN 08/23/20 09/25/20 Allergies Allergy/AdvReac Type Severity Reaction Status Date / Time adhesive tape Allergy Intermediate RASH Verified 10/29/20 10:17 Penicillins Allergy Unknown Unknown - Verified 10/29/20 10:17 A CHILD levofloxacin AdvReac Unknown Nausea and Verified 10/29/20 10:17 Vomiting Review of Systems Review of Systems: All systems reviewed & are unremarkable except as noted in HPI and below PMFSH Past Medical History Medical History Depression with anxiety Essential hypertension Fatty liver Insulin dependent type 2 diabetes mellitus Mixed hyperlipidemia Morbid obesity Obstructive sleep apnea on CPAP Surgical History Surgical History History of appendectomy History of arthroplasty of left knee (~10/2018) History of arthroplasty of right knee (~09/05/20) History of arthroscopy of left knee Partial medial and lateral meniscectomy. History of bladder suspension procedure History of repair of left rotator cuff History of total abdominal hysterectomy and bilateral salpingo-oophorectomy Family History Family History Father Hypertension Family history of diabetes mellitus in first degree relative Family history of congenital heart disease Family history of arthritis Mother Hypertension Family history of diabetes mellitus in first degree relative Family history of malignant neoplasm of kidney Family history of malignant neoplasm of uterus Family history of arthritis Family history of malignant neoplasm Sibling Family history of kidney disease Family history of diabetes mellitus in first degree relative Family history of malignant neoplasm of uterus Family history of arthritis Family history of malignant neoplasm Other Diabetes mellitus Family history of Alzheimer's disease Family history of attention deficit hyperactivity disorder (ADHD) Family history of cardiovascular disease Family history of elevated blood lipids Family history of migraine headaches Family history of obesity Family history of thyroid disease Social History Social History Social History: Surrogate decision maker: Travis Tracy, . Code status: Full code. Smoking status: Never smoker Alcohol intake: never Substance use: never Substance use type: does not use Additional living arrangements comments: Lives in [place] with her family. 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 Gender identity (if verbalized by the patient): Female Spiritual care concerns: No
[2020-10-29] MEDS: HYDROcodone/acetaminophen (*CRX) 5-325 MG TABLET 1 TAB PO (13:31)
== END 2020-10-29 13:45 | disposition home or self-care (01) ==
PROVIDERS: Emergency Medicine Emergency Medical Services; Emergency Provider Family Medicine; PCP Family Medicine
DX: M79.671 Pain in right foot (principal); G25.81 Restless legs syndrome; F41.8 Other specified anxiety disorders; I10 Essential (primary) hypertension; E11.9 Type 2 diabetes mellitus without complications; E78.2 Mixed hyperlipidemia; E66.01 Morbid (severe) obesity due to excess calories; Z68.37 Body mass index [BMI] 37.0-37.9, adult; G47.33 Obstructive sleep apnea (adult) (pediatric); Z96.653 Presence of artificial knee joint, bilateral; Z79.82 Long term (current) use of aspirin
CPT/HCPCS: 36415; 73630; 80048; 84550; 85025; 85652; 86140; 93971; 99284; A9270

== ENCOUNTER 2021-07-23 09:07 | Outpatient (RCR) | payer BC, SELFPAY ==
[2021-07-23] MEDS: ACETAMINOPHEN 325 MG TABLET 650 MG PO (10:09)
[2021-07-23] MEDS: diphenhydrAMINE HCl CAP 25 MG CAPSULE PO (10:09)
[2021-07-23] MEDS: FAMOTIDINE 20 MG TABLET PO (10:10)
[2021-07-23 10:12] VITALS: BP 113/63; PULSE 85; RESP 24; TEMP 36.3; O2SAT 100
--- NOTE | 2021-07-24 09:26 | PC.NURSE ---
Patient states she feels much better after her monoclonal antibody infusion.
== END 2021-07-23 16:11 ==
LOC: AMCINF 09:07
PROVIDERS: PCP Family Medicine; Visit Provider Internal Medicine Hematology & Oncology
DX: U07.1 COVID-19 (principal); E11.9 Type 2 diabetes mellitus without complications
CPT/HCPCS: A9270; M0245; Q0245

== ENCOUNTER 2022-02-02 11:12 | Outpatient (CLI) | payer BC, SELFPAY ==
[2022-02-02 11:33] LABS: Hematocrit 38.3 % (37.0-47.0); Mean Corpuscular HGB Conc 33.9 g/dl (32-36); Mean Corpuscular Hemoglobin 31.9 pg (26-34); Mean Corpuscular Volume 93.9 fl (80-100); Mean Platelet Volume 9.1 fl (7.4-10.4); Platelet Count Result 298 k/mm3 (150-375); Red Blood Count 4.08 M/mm3 (4.2-5.4); Red Cell Distribution Width 12.6 % (11.5-14.5); White Blood Count 10.6 K/mm3 (4.5-10.0)
[2022-02-02 11:45] LABS: Alanine Aminotransferase 45 U/L (6-35); Albumin Level 4.4 g/dL (3.5-5.1); Alkaline Phosphatase 76 U/L (38-126); Anion Gap 4 mmol/L (8-16); Aspartate Amino Transferase 55 U/L (14-36); Bilirubin,Total 0.2 mg/dL (0.2-1.3); Blood Urea Nitrogen 13 mg/dL (7-17); Carbon Dioxide 31 mmol/L (22-30); Chloride 104 mmol/L (98-107); Estimated Glomerular Filt Rate > 60; Glucose 158 mg/dL (65-110); Potassium 4.8 mmol/L (3.4-5.0); Sodium 139 mmol/L (137-145)
[2022-02-02 11:46] LABS: Cholesterol 161 mg/dL (0-200); HDL Direct 38 mg/dL; Triglycerides 134 mg/dL (<150)
[2022-02-02 11:48] LABS: Hemoglobin A1C 8.1 % (<5.7)
[2022-02-02 11:58] LABS: LDL Cholesterol Direct 89 mg/dL
[2022-02-02 12:02] LABS: Free T4 Free Thyroxine 1.04 ng/mL (0.78-2.19); Vitamin D 25 Hydroxy 74.4 ng/mL
[2022-02-02 12:03] LABS: Creatinine Urine 187.5 mg/dL
[2022-02-02 12:07] LABS: MALB Creatinine Ratio 7.6 mg/g (0-30); Microalbumin Urine Random 14.3 mg/L (0-16.7)
== END 2022-02-02 11:13 | disposition home or self-care (01) ==
PROVIDERS: PCP Family Medicine; Referring Provider Nurse Practitioner Family; Visit Provider Nurse Practitioner Family
DX: E78.2 Mixed hyperlipidemia (principal); K76.0 Fatty (change of) liver, not elsewhere classified; E55.9 Vitamin D deficiency, unspecified; Z79.4 Long term (current) use of insulin; E66.01 Morbid (severe) obesity due to excess calories; I10 Essential (primary) hypertension; E11.65 Type 2 diabetes mellitus with hyperglycemia; R80.9 Proteinuria, unspecified; R82.2 Biliuria
CPT/HCPCS: 36415; 80053; 80061; 82043; 82306; 82607; 83036; 84439; 84443; 85027

== ENCOUNTER → 2022-02-08 09:23 | Outpatient (CLI) | payer BC, SELFPAY ==
--- NOTE | ~2022-02-08 | US_ITS ---
US abdomen complete EXAMINATION: US Abdomen Complete INDICATION: Biliary. Abnormal liver enzymes. PROCEDURE: Realtime High Resolution abdomen ultrasound. COMPARISON: No prior studies for comparison FINDINGS: Gallbladder within normal limits. No gallstones, pericholecystic fluid, gallbladder wall t hickening or biliary dilatation. Common bile duct measures 4 mm. Liver echotexture is increased, consistent with fatty infiltration.. Pancreas within normal limits. Pancreatic tail is obscured by bowel gas. Spleen is unremarkeable. Renal echotexture is within norm al limits bilaterally without hydronephrosis, contour deforming mass or renal stone. Right kidney corey sures 13.6 cm. Left kidney measures 12.4 cm. There are right renal cysts, largest measuring 3.4 cm. Visualized aspects of the aorta and IVC are within normal limits. Portal vein is patent. No sonograph ic Schroeder's sign indicated by the technologist. IMPRESSION: 1: Hepatic steatosis. 2: Right renal cysts. Reviewed, dictated and finalized at location [facility].
== END ==
PROVIDERS: PCP Family Medicine; Visit Provider Nurse Practitioner Family
DX: R82.2 Biliuria (principal); K76.0 Fatty (change of) liver, not elsewhere classified; N28.1 Cyst of kidney, acquired
CPT/HCPCS: 76700

== ENCOUNTER 2022-02-19 13:18 | Outpatient (CLI) | payer BC, SELFPAY ==
[2022-02-23 05:02] LABS: CA-125 9 U/mL (<35)
== END 2022-02-19 13:19 | disposition home or self-care (01) ==
LOC: ANHLAB 13:19
PROVIDERS: PCP Family Medicine; Visit Provider Nurse Practitioner Family
DX: R93.5 Abnormal findings on diagnostic imaging of other abdominal regions, including retroperitoneum (principal); Z80.41 Family history of malignant neoplasm of ovary
CPT/HCPCS: 36415; 86304

== ENCOUNTER 2022-02-26 09:24 | Outpatient (CLI) | payer BC, SELFPAY ==
[2022-02-26 10:12] LABS: Prothrombin Time 12.3 Seconds (11.1-14.7)
[2022-02-26 10:30] LABS: Alanine Aminotransferase 37 U/L (6-35); Albumin Level 4.3 g/dL (3.5-5.1); Alkaline Phosphatase 61 U/L (38-126); Aspartate Amino Transferase 41 U/L (14-36); Bilirubin,Total 0.4 mg/dL (0.2-1.3)
[2022-02-26 10:58] LABS: Hepatitis B Surface Antigen Negative (Negative)
[2022-02-26 11:04] LABS: HAV RESULT Negative (Negative); Hepatitis B Core IgM Result Negative (Negative)
[2022-02-26 11:15] LABS: Hepatitis B Surface Anti Res Negative; Hepatitis C Virus Antibody Negative (Negative)
[2022-02-26 14:44] LABS: Iron 82 ug/dL (37-170)
[2022-02-26 15:01] LABS: Percent Iron Saturation 21 % (20-50)
[2022-02-28 21:39] LABS: LKM 1 Antibody <=20.0 U (<=20.0)
[2022-03-01 11:31] LABS: Ceruloplasmin 29 mg/dL (18-53)
[2022-03-01 11:54] LABS: Mitochondrial (M2) Ab (IgG) <=20.0 U (<=20.0)
[2022-03-02 17:07] LABS: Alpha Fetoprotein Tumor Marker 2.9 ng/mL (<6.1)
[2022-03-04 07:27] LABS: Hepatitis A Antibody Total Nonreactive (Nonreactive)
== END 2022-02-26 09:25 | disposition home or self-care (01) ==
PROVIDERS: PCP Family Medicine; Visit Provider Nurse Practitioner
DX: K76.0 Fatty (change of) liver, not elsewhere classified (principal); R79.89 Other specified abnormal findings of blood chemistry
CPT/HCPCS: 36415; 80074; 80076; 82105; 82390; 82728; 83520; 83540; 83550; 85610; 86038; 86376; 86706; 86708

== ENCOUNTER 2022-03-25 00:22 | Day surgery (SDC) | payer BC, SELFPAY ==
[2022-03-19 12:25] VITALS: BMI 38.5
--- NOTE | 2022-03-25 09:03 | WPDANESEPPF ---
Anes - Initial Pre Proc Eval Procedure: Operation Date: 03/25/22 10:15 Proposed Procedures p Screening Colonoscopy - Guillermo Mazariegos MD Date/Time: 03/25/22 09:03 Surgeon: Guillermo Mazariegos MD Pre Op Diagnosis: family hx colon ca, neoplasm screening Patient Data Age: 61 Gender: F Height: 1.65 m Weight: 105 kg Allergies Allergy/AdvReac Type Severity Reaction Status Date / Time adhesive tape Allergy Intermediate RASH Verified 03/25/22 08:58 Penicillins Allergy Unknown Unknown - Verified 03/25/22 08:58 A CHILD levofloxacin AdvReac Intermediate Nausea and Verified 03/25/22 08:58 Vomiting Home Medications Medication Instructions Recorded Confirmed Type pen needle, diabetic 32 gauge x #200 ea 12/22/20 03/25/22 Rx 1/4 (BD Ultra-Fine Micro Pen Needle) Tresiba FlexTouch U-200 200 130 unit (0.65 mL) subcut QPM 90 08/15/21 03/25/22 Rx unit/mL (3 mL) subcutaneous pen days #63 mL (insulin degludec) flash glucose sensor (FreeStyle #6 ea 09/10/21 03/25/22 Rx Giuliana 2 Sensor kit) metformin 500 mg tablet,extended 1,000 mg PO BID 11/12/21 03/25/22 History release 24 hr citalopram 40 mg tablet 40 mg PO QAM #90 tabs 01/21/22 03/25/22 Rx lisinopril 10 mg tablet 10 mg PO DAILY 90 days #90 tabs 01/21/22 03/25/22 Rx rosuvastatin 20 mg tablet 20 mg PO DAILY #90 tabs 01/21/22 03/25/22 Rx tirzepatide 5 mg/0.5 mL 5 mg (0.5 mL) subcut WEEKLY #2 mL 03/04/22 03/25/22 Rx subcutaneous pen injector (Mounjaro) apple cider vinegar 450 mg PO DAILY 03/19/22 03/25/22 History cholecalciferol (vitamin D3) 25 50 mcg PO DAILY 03/19/22 03/25/22 History mcg (1,000 unit) tablet (Vitamin D3) Patient hx anesthesia problems: none Family hx anesthesia problems: none Results Review: All pre-operative results and documents have been reviewed as part of the pre-operative evaluation. [facility] Past Medical History Medical History Depression with anxiety Essential hypertension Fatty liver Insulin dependent type 2 diabetes mellitus Mixed hyperlipidemia Morbid obesity NAFLD (nonalcoholic fatty liver disease) Obstructive sleep apnea on CPAP Osteoarthritis of right knee RLS (restless legs syndrome) Type 2 diabetes mellitus with hyperglycemia Surgical History Surgical History History of appendectomy History of arthroplasty of left knee (~10/2018) History of arthroplasty of right knee (~09/05/20) History of arthroscopy of left knee Partial medial and lateral meniscectomy. History of bladder suspension procedure History of repair of left rotator cuff History of total abdominal hysterectomy and bilateral salpingo-oophorectomy Status post total knee replacement, left Status post total knee replacement, right Family History Family History Father Hypertension Family history of diabetes mellitus in first degree relative Family history of congenital heart disease Family history of arthritis Mother Hypertension Family history of diabetes mellitus in first degree relative Family history of malignant neoplasm of kidney Family history of malignant neoplasm of uterus Family history of arthritis Family history of malignant neoplasm Dementia Anemia Sibling Family history of kidney disease Family history of diabetes mellitus in first degree relative Family history of malignant neoplasm of uterus Family history of arthritis Family history of malignant neoplasm Other Diabetes mellitus Family history of Alzheimer's disease Family history of attention deficit hyperactivity disorder (ADHD) Family history of cardiovascular disease Family history of elevated blood lipids Family history of migraine headaches Family history of obesity Family history of thyroid disease Social History Social Histor
[2022-03-25 09:07] VITALS: BP 97/77; PULSE 85; RESP 18; TEMP 36.1; O2SAT 97; BMI 38.1
[2022-03-25 09:08] LABS: Glucose Point of Care 124 mg/dl (65-105)
[2022-03-25] MEDS: LACTATED RINGERS 1,000 ML 150 ML IV CONT (09:13)
--- NOTE | 2022-03-25 09:26 | WPDHPUPDATE1 ---
History and Physical Update Update Date/Time: 03/25/22 09:26 History and Physical has been reviewed, including an updated exam of the patient. There are NO changes in the patient's condition. Risks, benefits, and alternatives have been discussed and questions answered. Patient agrees to proceed with procedure.
[2022-03-25 09:50] VITALS: BP 111/65; PULSE 74; RESP 15; O2SAT 97
[2022-03-25 10:00] VITALS: BP 109/71; PULSE 69; RESP 20; O2SAT 97
[2022-03-25 10:10] VITALS: BP 97/71; PULSE 69; RESP 13; O2SAT 98
== END 2022-03-25 10:13 | disposition home or self-care (01) ==
PROVIDERS: PCP Family Medicine; Visit Provider Internal Medicine Gastroenterology
PROC: 0DJD8ZZ Inspection of Lower Intestinal Tract, Via Natural or Artificial Opening Endoscopic (ICD-10-PCS; CPT 45378; principal; 2022-03-25 10:15)
DX: Z12.11 Encounter for screening for malignant neoplasm of colon (principal); Z80.0 Family history of malignant neoplasm of digestive organs; K64.8 Other hemorrhoids; K76.0 Fatty (change of) liver, not elsewhere classified; E11.9 Type 2 diabetes mellitus without complications; Z92.86 Personal history of gene therapy; M19.90 Unspecified osteoarthritis, unspecified site; Z85.43 Personal history of malignant neoplasm of ovary; G47.30 Sleep apnea, unspecified; E78.5 Hyperlipidemia, unspecified; F32.A Depression, unspecified; G25.81 Restless legs syndrome; E78.2 Mixed hyperlipidemia; Z79.84 Long term (current) use of oral hypoglycemic drugs; R79.89 Other specified abnormal findings of blood chemistry; E11.65 Type 2 diabetes mellitus with hyperglycemia; K63.5 Polyp of colon; Z79.4 Long term (current) use of insulin; I10 Essential (primary) hypertension; E66.9 Obesity, unspecified; Z68.38 Body mass index [BMI] 38.0-38.9, adult
CPT/HCPCS: 45385; 45380; 82948; 88305; J2704; J7120

== ENCOUNTER 2022-09-30 09:32 | Outpatient (CLI) | payer BC, SELFPAY ==
[2022-09-30 10:56] LABS: Hematocrit 42.1 % (37.0-47.0); Hemoglobin 13.5 g/dL (12.0-15.0); Mean Corpuscular HGB Conc 32.1 g/dl (32-36); Mean Corpuscular Volume 96.8 fl (80-100); Mean Platelet Volume 9.2 fl (7.4-10.4); Platelet Count Result 314 k/mm3 (150-375); Red Blood Count 4.35 M/mm3 (4.2-5.4); Red Cell Distribution Width 13.1 % (11.5-14.5); White Blood Count 8.9 K/mm3 (4.5-10.0)
[2022-09-30 11:12] LABS: Prothrombin Time 12.3 Seconds (11.1-14.7)
[2022-09-30 11:24] LABS: Alanine Aminotransferase 26 U/L (6-35); Albumin Level 4.2 g/dL (3.5-5.1); Alkaline Phosphatase 60 U/L (38-126); Anion Gap 7 mmol/L (8-16); Aspartate Amino Transferase 29 U/L (14-36); Bilirubin,Total 0.5 mg/dL (0.2-1.3); Blood Urea Nitrogen 10 mg/dL (7-17); Calcium 8.6 mg/dL (8.4-10.2); Carbon Dioxide 29 mmol/L (22-30); Chloride 104 mmol/L (98-107); Estimated Glomerular Filt Rate > 60; Glucose 119 mg/dL (65-110); Potassium 4.5 mmol/L (3.4-5.0); Sodium 140 mmol/L (137-145)
== END 2022-09-30 09:33 | disposition home or self-care (01) ==
LOC: ANHLAB 09:33
PROVIDERS: PCP Family Medicine; Visit Provider Nurse Practitioner
DX: K76.0 Fatty (change of) liver, not elsewhere classified (principal)
CPT/HCPCS: 36415; 80053; 82248; 85027; 85610

== ENCOUNTER 2022-10-04 14:21 | Outpatient (CLI) | payer BC, SELFPAY ==
--- NOTE | ~2022-10-04 | CT_ITS ---
EXAMINATION: CT abdomen pelvis w con DATE: 10/04/2022 14:51 INDICATION: Right lower quadrant pain TECHNIQUE: Computed tomography (CT) of the abdomen and pelvis was performed with 100 mL Omnipaque-350 intravenous contrast. Automated exposure control and iterative reconstruction technique were employe d. The dose-length product was 1371.73 mGy-cm. COMPARISON: None FINDINGS: Lower lungs are clear. Heart size is normal. No pericardial or pleural effusion. Liver, gallbladder, spleen and pancreas are normal. Bilateral low-attenuation renal cysts the majority subcentimeter and too small to definitively characterize but the largest measuring 3.2 cm in the right kidney. 2.1 cm r ight adrenal nodule and 7 mm left adrenal nodule statistically most likely to represent adenomas. Harrison els are unremarkable with no obstruction. The appendix is not visualized. No pericecal inflammatory c hange to suggest acute appendicitis. Small fat-containing umbilical hernia. Bladder is normal. The u terus is not identified and has likely been surgically resected. No free intraperitoneal gas or fluid . No pathologically enlarged abdominal or pelvic lymphadenopathy. Mild thoracolumbar levocurvature wi th moderate spondylosis. There are multiple Schmorl's nodes in the lumbar and lower thoracic spine. IMPRESSION: 1. No acute intra-abdominal/pelvic process. 2. Bilateral adrenal nodules, the larger on the right measuring 2.1 cm statistically most likely to r epresent adenomas but given the size of the right adrenal nodule would recommend further evaluation w [facility] adrenal protocol pre and postcontrast MRI. 3. Small fat-containing umbilical hernia. Reviewed, dictated and finalized at location [facility]. CONVEYOR OPERATOR IMPRESSION: 1. No acute intra-abdominal/pelvic process. 2. Bilateral adrenal nodules, the larger on the right measuring 2.1 cm statisti payton most likely to represent adenomas but given the size of the right adrenal nodule would recommend further evaluation with adrenal protocol pre and postco ntrast MRI. 3. Small fat-containing umbilical hernia.
== END 2022-10-04 14:22 | disposition home or self-care (01) ==
PROVIDERS: PCP Family Medicine; Visit Provider Nurse Practitioner
DX: R10.813 Right lower quadrant abdominal tenderness (principal); E27.9 Disorder of adrenal gland, unspecified; K42.9 Umbilical hernia without obstruction or gangrene
CPT/HCPCS: 74177; Q9967

== ENCOUNTER → 2022-10-25 09:46 | Outpatient (CLI) | payer BC, SELFPAY ==
--- NOTE | ~2022-10-25 | MR_ITS ---
EXAMINATION: MR abdomen wo/w con INDICATION: Bilateral adrenal masses on CT TECHNIQUE: Coronal SSFSE ARC, WATER:coronal LAVA-FLEX, Coronal 2D FIESTA FatSat, Axial SSFSE BH ARC, Axial 3D DualEcho BH, Axial SSFSE-IR, Axial DWI b=500, Axial 2D FIESTA FatSat, pre and dynamic postco ntrast Axial LAVA ARC, postcontrast Coronal In and Opposed phase LAVA FLEX COMPARISON: CT, 10/04/2022 CONTRAST: CT, 10/04/2022 FINDINGS: The heart size is normal. There is a 7 mm cyst of the liver. The spleen and gallbladder are normal. There are cystic lesions in the body of the pancreas which measure 8 mm and 5 mm. There is n o definite communication with the main pancreatic duct. Cysts of the kidneys measure up to 3.7 cm on the right. There are bilateral adrenal masses, measuring up to 2.1 cm on the right, with loss of sign al intensity on opposed phase imaging, consistent with adenomas. There are no pathologically enlarged abdominal lymph nodes. IMPRESSION: 1. Bilateral adrenal masses with MR features consistent with adenomas. 2. Cystic lesion of the pancreatic body measuring up to 8 mm. The differential diagnosis includes pse udocyst, intraductal papillary mucinous neoplasm (IPMN), mucinous cystic neoplasm (MCN), and the less common serous cystadenoma and neuroendocrine tumor. Correlate for history of pancreatitis. Follow-up pancreas protocol MRI or CT in one year is recommended. Reviewed, dictated and finalized at location [facility]. IMPRESSION: 1. Bilateral adrenal masses with MR features consistent with adenomas. 2. Cystic lesion of the pancreatic body measuring up to 8 mm. The differential diagnosis includes pseudocyst, intraductal papillary mucinous neoplasm (IPMN), mucinous cystic neoplasm (MCN), and the less common serous cystadenoma and neur oendocrine tumor. Correlate for history of pancreatitis. Follow-up pancreas pro tocol MRI or CT in one year is recommended.
== END ==
PROVIDERS: PCP Family Medicine; Visit Provider Nurse Practitioner Family
DX: R93.5 Abnormal findings on diagnostic imaging of other abdominal regions, including retroperitoneum (principal); D35.01 Benign neoplasm of right adrenal gland; D35.02 Benign neoplasm of left adrenal gland
CPT/HCPCS: 74183; A9577

== ENCOUNTER 2022-11-26 09:12 | Outpatient (CLI) | payer BC, SELFPAY ==
[2022-11-26 10:12] LABS: Cortisol Baseline 1.24 ug/dL
== END 2022-11-26 09:13 | disposition home or self-care (01) ==
PROVIDERS: PCP Family Medicine; Visit Provider Internal Medicine Endocrinology, Diabetes & Metabolism
DX: E27.8 Other specified disorders of adrenal gland (principal)
CPT/HCPCS: 36415; 82533

== ENCOUNTER 2023-03-26 09:33 | Outpatient (CLI) | payer BC, SELFPAY ==
[2023-03-26 10:22] LABS: Hematocrit 43.5 % (37.0-47.0); Mean Corpuscular HGB Conc 32.2 g/dl (32-36); Mean Corpuscular Hemoglobin 31.6 pg (26-34); Mean Corpuscular Volume 98.2 fl (80-100); Platelet Count Result 286 k/mm3 (150-375); Red Blood Count 4.43 M/mm3 (4.2-5.4); Red Cell Distribution Width 12.6 % (11.5-14.5)
[2023-03-26 10:36] LABS: Alanine Aminotransferase 29 U/L (6-35); Albumin Level 4.4 g/dL (3.5-5.1); Alkaline Phosphatase 61 U/L (38-126); Anion Gap 8 mmol/L (8-16); Aspartate Amino Transferase 30 U/L (14-36); Bilirubin,Total 0.4 mg/dL (0.2-1.3); Blood Urea Nitrogen 12 mg/dL (7-17); Calcium 8.9 mg/dL (8.4-10.2); Carbon Dioxide 27 mmol/L (22-30); Chloride 102 mmol/L (98-107); Estimated Glomerular Filt Rate > 60; Glucose 167 mg/dL (65-110); Potassium 4.5 mmol/L (3.4-5.0); Sodium 137 mmol/L (137-145)
== END 2023-03-26 09:34 | disposition home or self-care (01) ==
LOC: ANHLAB 09:35
PROVIDERS: PCP Family Medicine; Visit Provider Nurse Practitioner
DX: K76.0 Fatty (change of) liver, not elsewhere classified (principal)
CPT/HCPCS: 36415; 80053; 85027

== ENCOUNTER 2023-07-12 09:16 | Outpatient (CLI) | payer BC, SELFPAY ==
[2023-07-17 14:53] LABS: Renin 16.67 ng/mL/h (0.25-5.82)
[2023-07-17 22:24] LABS: Metanephrine, Free <25 pg/mL (<=57); Normetanephrine, Free 101 pg/mL (<=148); Total, Free (MN + NMN) 101 pg/mL (<=205)
== END 2023-07-12 09:17 | disposition home or self-care (01) ==
LOC: ANHLAB 09:17
PROVIDERS: PCP Family Medicine; Visit Provider Nurse Practitioner Family
DX: E27.8 Other specified disorders of adrenal gland (principal)
CPT/HCPCS: 36415; 82088; 82384; 83835; 84244

== ENCOUNTER 2023-09-25 10:20 | Outpatient (CLI) | payer BC, SELFPAY ==
[2023-09-25 10:39] LABS: Hematocrit 42.7 % (37.0-47.0); Hemoglobin 13.7 g/dL (12.0-15.0); Mean Corpuscular HGB Conc 32.1 g/dl (32-36); Mean Corpuscular Hemoglobin 31.4 pg (26-34); Mean Corpuscular Volume 97.9 fl (80-100); Mean Platelet Volume 9.1 fl (7.4-10.4); Platelet Count Result 278 k/mm3 (150-375); Red Blood Count 4.36 M/mm3 (4.2-5.4); Red Cell Distribution Width 12.6 % (11.5-14.5); White Blood Count 9.1 K/mm3 (4.5-10.0)
[2023-09-25 10:54] LABS: Alanine Aminotransferase 26 U/L (6-35); Albumin Level 4.3 g/dL (3.5-5.1); Alkaline Phosphatase 55 U/L (38-126); Aspartate Amino Transferase 36 U/L (14-36); Bilirubin,Total 0.6 mg/dL (0.2-1.3)
== END 2023-09-25 10:21 | disposition home or self-care (01) ==
LOC: ANHLAB 10:21
PROVIDERS: PCP Family Medicine; Visit Provider Nurse Practitioner Family
DX: R74.8 Abnormal levels of other serum enzymes (principal); K86.2 Cyst of pancreas; K76.0 Fatty (change of) liver, not elsewhere classified; D49.0 Neoplasm of unspecified behavior of digestive system
CPT/HCPCS: 36415; 80076; 85027

== ENCOUNTER 2023-10-08 08:38 | Outpatient (CLI) | payer BC, SELFPAY ==
--- NOTE | ~2023-10-08 | MR_ITS ---
EXAMINATION: MR MRCP wo/w con/w 3D wo ind DATE: 10/08/2023 09:52 INDICATION: Follow-up pancreatic lesion TECHNIQUE: Magnetic resonance imaging (MRI) of the abdomen was performed without and with 19 mL Multi syed intravenous contrast. Sequences included coronal T2-weighted SS-FSE, coronal T2-weighted FS SS- FSE, coronal T2-weighted FS FIESTA, axial T2-weighted FS FIESTA, axial T2-weighted FIESTA, sagittal T 2-weighted SS-FSE, axial T1-weighted dual-echo FSPGR, axial T2-weighted SS-FSE, axial T1-weighted LAV A, axial T2-weighted STIR FSE. Thick-slab T2-weighted FRFSE-XL images were obtained for magnetic reso nance cholangiopancreatography (MRCP). Rotating maximum intensity projection 3-D reconstructions of t he volumetric data were created by the technologist. Postcontrast sequences included a time course of axial T1-weighted LAVA. COMPARISON: MRI dated 10/25/[address] dated 10/04/2022 FINDINGS: ABDOMEN MRI: Heart size is normal. No pericardial or pleural effusion. A millimeter T2 hyperintense nonenhancing c yst at the dome of the liver. Gallbladder, spleen and left adrenal gland are normal. Unchanged 2.0 x 1.7 cm right adrenal mass with signal dropout more prominent on the prior MRI consistent with adenoma . There are multiple bilateral T2 hyperintense nonenhancing predominant small cysts at both kidneys w ith larger 4.2 cm cyst at the lower pole of the right kidney. No interval change in 8 mm and 5 mm T2 hyperintense nonenhancing cystic lesions at the body of the pancreas. Visualized bowels are unremarka ble with no obstruction. No pathologically enlarged abdominal or upper pelvic lymphadenopathy. T1 hyp erintense fat saturating hemangioma at T12. Mild to moderate thoracic and lumbar spondylosis with mul tiple Schmorl's nodes. ABDOMEN MRCP: Common bile duct measures up to 5 mm in maximal diameter which is normal. No intraluminal filling def ects to suggest choledocholithiasis. No intrahepatic biliary ductal dilation. IMPRESSION: 1. No interval change in a couple simple appearing T2 hyperintense nonenhancing cystic lesions at the body of the pancreas measuring 8 mm and 5 mm. Recommend continued annual follow-up pre and postcontr ast MRI or CT. 2. Reviewed, dictated and finalized at location B. IMPRESSION: 1. No interval change in a couple simple appearing T2 hyperintense nonenhancing cystic lesions at the body of the pancreas measuring 8 mm and 5 mm. Recommend continued annual follow-up pre and postcontrast MRI or CT. 2.
== END 2023-10-08 08:39 | disposition home or self-care (01) ==
PROVIDERS: PCP Family Medicine; Visit Provider Nurse Practitioner
DX: K86.2 Cyst of pancreas (principal)
CPT/HCPCS: 74183; 76376; A9577

== ENCOUNTER 2023-12-03 10:49 | Outpatient (CLI) | payer BC, SELFPAY | END 2023-12-03 10:50 | disposition home or self-care (01) | LOC: ANHAUDASC 10:50 | PROVIDERS: PCP Family Medicine; Visit Provider Otolaryngology | DX: H90.3 Sensorineural hearing loss, bilateral (principal); H93.13 Tinnitus, bilateral; H65.491 Other chronic nonsuppurative otitis media, right ear; J01.20 Acute ethmoidal sinusitis, unspecified | CPT/HCPCS: 92557; 92567 ==

== ENCOUNTER 2023-12-31 08:39 | Outpatient (CLI) | payer BC, SELFPAY ==
[2023-12-31 09:27] LABS: Alanine Aminotransferase 26 U/L (6-35); Albumin Level 4.5 g/dL (3.5-5.1); Alkaline Phosphatase 62 U/L (38-126); Anion Gap 8 mmol/L (4-12); Aspartate Amino Transferase 32 U/L (14-36); Bilirubin,Total 0.5 mg/dL (0.2-1.3); Blood Urea Nitrogen 10 mg/dL (7-17); Calcium 9.3 mg/dL (8.4-10.2); Carbon Dioxide 25 mmol/L (22-30); Chloride 107 mmol/L (98-107); Cholesterol 158 mg/dL (0-200); Estimated Glomerular Filt Rate > 60; Glucose 147 mg/dL (65-110); HDL Direct 51 mg/dL; Potassium 4.3 mmol/L (3.4-5.0); Sodium 140 mmol/L (137-145); Triglycerides 95 mg/dL (<150)
[2023-12-31 09:39] LABS: LDL Cholesterol Direct 92 mg/dL
[2023-12-31 10:02] LABS: Vitamin D 25 Hydroxy 64.1 ng/mL
[2023-12-31 10:53] LABS: Creatinine Urine 47.5 mg/dL
[2023-12-31 11:09] LABS: Microalbumin Urine Random < 6.0 mg/L (0-16.7)
[2023-12-31 11:10] LABS: MALB Creatinine Ratio < 12.6 mg/g (0-30)
== END 2023-12-31 08:40 | disposition home or self-care (01) ==
LOC: ANHLAB 08:41
PROVIDERS: PCP Family Medicine; Visit Provider Internal Medicine Endocrinology, Diabetes & Metabolism
DX: E27.8 Other specified disorders of adrenal gland (principal); K76.0 Fatty (change of) liver, not elsewhere classified; E11.65 Type 2 diabetes mellitus with hyperglycemia; E78.2 Mixed hyperlipidemia; R79.89 Other specified abnormal findings of blood chemistry
CPT/HCPCS: 36415; 80053; 80061; 82043; 82306; 82607; 84443

== ENCOUNTER 2024-09-29 07:59 | Outpatient (CLI) | payer BC, SELFPAY ==
--- OUTSIDE RECORDS SUMMARY | 2024-09-29 08:08 | XMS_ITS | Clinical Summary ---
Author Organization [facility] Address [facility] [place] [address] Care Team Providers Care Cycle Specialist Name Role Phone Lew Cary MD Primary Care Provider [phone] Allergies Active Allergy Reactions Criticality Noted Date Comments Levofloxacin Vomiting 01/13/2022 Penicillins Unknown 01/13/2022 Medications metFORMIN 1000 MG tablet Take 1,000 mg by mouth 2 (two) times daily with meals. Active LISINOPRIL OR Active ESCITALOPRAM OXALATE OR Active ROSUVASTATIN CALCIUM OR Active Insulin Degludec (TRESIBA SC) Active Semaglutide (OZEMPIC, 1 MG/DOSE, SC) Active Social History Tobacco Use Types Packs/Day Years Used Date Smoking Tobacco: Never Smokeless Tobacco: Never Alcohol Use Standard Drinks/Week Comments Never 0 (1 standard drink = 0.6 oz pur e alcohol) Comments Unknown Sex and Gender Information Value Date Recorded Sex Assigned at Not on file Legal Sex Female 5:11 PM CDT Gender Identity Not on file Sexual Orientation Not on file Last Filed Vital Signs Vital Sign Reading Time Taken Comments Blood Pressure 101/48 01/13/2022 3:33 PM CDT Pulse 75 01/13/2022 3:33 PM CDT Temperature 36.7 C (98.1 F) 01/13/2022 3:33 PM CDT Respiratory Rate 18 01/13/2022 3:33 PM CDT Oxygen Saturation 98% 01/13/2022 3:33 PM CDT Inhaled Oxygen Concentration - - Weight 104.3 kg (230 lb) 01/13/2022 3:33 PM CDT Height 165.1 cm (5' 5 ) 01/13/2022 3:33 PM CDT Body Mass Index 38.27 01/13/2022 3:33 PM CDT Plan of Treatment Health Maintenance Due Date Last Done Comments Colorectal Cancer Screening Colonoscopy (10 Years) 1962 Annual Physical 1965 Hepatitis C 1980 DTaP, Tdap and Td Vaccines ( 1 - Tdap) 1981 Mammogram Screening 2002 Zoster Vaccines (1 of 2) 2012 COVID-19 Vaccine (3 - 2023-2 5 season) 2024 10/07/2020, 09/16/2020 Influenza Adult (#1) 2024 RSV Immunization or 60+ Years (1 - 1-dose 75+ series) 2037 Meningococcal B Vaccine Aged Out No l onger eligible based on patient's age to complete this topic Meningococcal Vaccine Aged Out No tristen shavon eligible based on patient's age to complete this topic Pneumococcal Vaccine: Pediatrics (0 to 5 Years) and At-Risk Patients (6 to 64 Years) Aged Out No longer eligible b ased on patient's age to complete this topic RSV Immunizations Under 20 Months Aged Out No longer eligible b ased on patient's age to complete this topic Insurance [facility] C[facility] A/S [facility] C[facility] A/S [facility]/S [facility] Care Teams Cycle Specialist Relationship Specialty Start Date End Date Lew Cary MD [address] [place] [address] PCP - General FAMILY PRACTICE 01/13/22
--- OUTSIDE RECORDS SUMMARY | 2024-09-29 08:08 | XMS_ITS | Patient Health Summary ---
Author Organization [facility] Address [address] [place] [address] Care Team Providers Care House Father Name Role Phone Lew Cary MD Primary Care Provider [phone] Note from [facility],non-owned Affiliates and Associated Physician Practices is amultiple site organization consisting of ambulatory clinics and hospital sitesin [place], [place], [place] and [place]. This disclosure is being madepursuant to the Care Everywhere program and may not contain all information available regarding this patient. Last updated 18.[facility] Active Problems Problem Noted Date Diagnosed Date NAFLD (nonalcoholic fatty liver disease) 022 Social History Tobacco Use Types Packs/Day Years Used Date Smoking Tobacco: Never Assessed Sex and Gender Information Value Date Recorded Sex Assigned at Not on file Gender Identity Not on file Sexual Orientation Not on file Procedures * [place] LIVER ELASTOGRAPHY(Performed 03/27/2022) Performed for Nonalcoholic fatty liver disease Results * [place] LIVER ELASTOGRAPHY (03/27/2022 9:42 AM CDT) Narrative Dario Guadarrama MD - 03/27/2022 9:42 AM CDT Dario Guadarrama MD 03/28/2022 11:12 AM Diagnosis: NAFLD MA verified patient not , no implanted devices and NPO for prior 3 hours. Date of Exam: 03/27/2022 Liver Stiffness: (LSM, kPa) median: 4.3 IQR (interquartile range): 0.5 IQR/Median% (ideally < 30%): 12% CAP (controlled attenuation parameter): 382 Technical Difficulty: None Ordering Provider: Callie Roger CNP Fibroscan interpretation: I have personally reviewed the Fibroscan report and associated tracings. The calculated Liver Stiffness Measurement (LSM, kPa) indicates that: The probability of advanced liver fibrosis is: low. The loss of ultrasound signal, (controlled attenuation parameter, CAP [dB/m]), indicates that the probability of hepatic steatosis is: high. Dario Guadarrama MD The following criteria are used to indicate the probability of advanced (stage 3-4) fibrosis: < 7.0 kPa: low 7.0-8.9 kPa: low to moderate 9.0-14.9 kPa: moderate 15-20 kPa: high > 20 kPa: very high Liver stiffness > 20 kPa is also associated with a high probability of complications of portal hypertension including varices and ascites. Liver stiffness > 50 kPa is associated with a high risk of variceal bleeding. These interpretations are based on the following published data: Jesenia PJ, Ana M, Estephanie M, et al. Accuracy of FibroScan controlled attenuation parameter and liver stiffness measurement in assessing steatosis and fibrosis in patients with nonalcoholic fatty liver disease. Gastroenterology 2019;156:7916-3293. Osiris MS, Juan R, Van Elisha ML, et al. Vibration-controlled transient elastography to assess fibrosis and steatosis in patients with nonalcoholic fatty liver disease. Clin Gastroenterol Hepatol 2019;17:156-163. Note: 1. Fibroscan cannot reliably identify earlier stages of fibrosis (ie distinguish F0 from F1 and F2) and thus a histologic stage cannot be predicted from the Fibroscan reading. 2. Assessing the likelihood of advanced fibrosis in patients with indeterminate liver stiffness measurement (LSM) by Fibroscan (e.g., 8-15 kPa) can be improved by also calculating the FIB4 score (Kateuke et al. Hepatology Communications 2019;3:8596-5592) or NAFLD Fibrosis score (Sánchez et al. Clinical Gastroenterology and Hepatology 2019;17:9655-4369. from routine clinical data. 3. Liver stiffness can be increased by factors other than fibrosis including passive congestion, infiltrative processes, active alcoholism, biliary obstruction and marked inflammation. The interpretation of the Fibroscan result provided above may not have taken such clinical factors into account. Disease etiology also influences Fibroscan cutoff values for fibrosis stages and the following cutoffs have been proposed (Daly et al, Clin Gastro Hepatol 2015; 13:27-36): Cutoffs for Stage 3 and Stage 4 fibrosis respectively: Hepatitis B: >9 and >11.7 kPa Hepatitis C: >9.5 and >12.5 kPa HCV-HIV: >11 and >14 kPa Cholestatic liver diseases: >10 and >17.9 kPa NAFLD/ALEJO: >10 and >14 kPa CAP estimates of steatosis: normal <200 dB/m mild 200 to 250 dB/m moderate 250-290 dB/m substantial > 290 dB/m (Note that Fibroscan is not a quantitative measure of liver fat.) These criteria are estimates and may change as additional supporting data becomes available. [email or web address] Dario Christian MD PROCEDURE/ MINOR SURGICAL ORDERABLES Care Teams House Father Relationship Specialty Start Date End Date Lew Cary MD [address] [place] [address] PCP - General 03/28/22
--- OUTSIDE RECORDS SUMMARY | 2024-09-29 08:08 | XMS_ITS | Referral Summary ---
Author Organization [facility] Address [address] [place] [address] Care Team Providers Care Custodial Foreman Name Role Phone Lew Cary MD Primary Care Provider [phone] Source Comments [facility],non-[facility] Affiliates and Associated Physician Practices is amultiple site organization consisting of ambulatory clinics and hospital sitesin [place], [place], [place] and [place]. This disclosure is being madepursuant to the Care Everywhere program and may not contain all information available regarding this patient. Last updated 18.[facility] Active Problems Problem Noted Date Diagnosed Date NAFLD (nonalcoholic fatty liver disease) 022 Overview (03/28/2022): 03/27/22 Fibroscan CAP 382, LSM 4.3 kPa Social History Tobacco Use Types Packs/Day Years Used Date Smoking Tobacco: Never Assessed Sex and Gender Information Value Date Recorded Sex Assigned at Not on file Gender Identity Not on file Sexual Orientation Not on file Plan of Treatment Not on file Care Teams Custodial Foreman Relationship Specialty Start Date End Date Lew Cary MD [address] [place] [address] PCP - General 03/28/22
--- OUTSIDE RECORDS SUMMARY | 2024-09-29 08:08 | XMS_ITS | Clinical Summary ---
Author Organization [facility] Address [address] [place] [address] Care Team Providers Care Barge Master Name Role Phone Lew Cary MD Primary Care Provider [phone] [facility],non-[facility] Affiliates and Associated Physician Practices is amultiple site organization consisting of ambulatory clinics and hospital sitesin [place], [place], [place] and [place]. This disclosure is being madepursuant to the Care Everywhere program and may not contain all information available regarding this patient. Last updated 18.[facility] Active Problems Problem Noted Date Diagnosed Date NAFLD (nonalcoholic fatty liver disease) 022 Overview (03/28/2022): 03/27/22 Fibroscan CAP 382, LSM 4.3 kPa Social History Tobacco Use Types Packs/Day Years Used Date Smoking Tobacco: Never Assessed Sex and Gender Information Value Date Recorded Sex Assigned at Not on file Gender Identity Not on file Sexual Orientation Not on file Plan of Treatment Health Maintenance Due Date Last Done Comments COLOGUARD (AGES 45-75) - COL ON CA SCREENING 1962 COLON MONITORING 1962 COLONOSCOPY - COLON CA SCREENING 1962 CT COLONOGRAPHY - COLON CA SCREENING 1962 Colorectal Cancer Screening 1962 FIT - COLON CA SCREENING 1962 FLEX SIG - COLON CA SCREENING 1962 LIPID TESTING 1962 MAMMOGRAM 1962 PAP SMEAR 1962 HIV SCREENING 1977 HEPATITIS C SCREENING 07/10/1980 DTAP/TDAP/TD VACCINES (1 - Tdap) 1981 PNEUMOCOCCAL VACCINE 50+ (1 of 1 - PCV) 2012 ZOSTER VACCINE (1 of 2) 2012 COVID-19 VACCINE (1 - 2023-2 5 season) 2024 INFLUENZA VACCINE (#1) 2024 DEPRESSION SCREENING 07/28/2024 Respiratory Syncytial Virus (RSV) Vaccine Pt: or over 60 yrs (1 - 1-dose 75+ series) 2037 HEPATITIS B VACCINE Aged Out No longe r eligible based on patient's age to complete this topic HIB VACCINE Aged Out No longer eligi ble based on patient's age to complete this topic HPV VACCINE Aged Out No longer eligi ble based on patient's age to complete this topic MENINGOCOCCAL (Group B) VACCINE Aged Out No longer eligible based on patient's age to complete this topic MENINGOCOCCAL VACCINE Aged Out No tristen shavon eligible based on patient's age to complete this topic PNEUMOCOCCAL VACCINE Aged Out No long er eligible based on patient's age to complete this topic Care Teams Barge Master Relationship Specialty Start Date End Date Lew Cary MD [address] [place] [address] PCP - General 03/28/22
--- OUTSIDE RECORDS SUMMARY | 2024-09-29 08:08 | XMS_ITS | Continuity of Care Document ---
Author Organization [facility] Address [address] [place] [address] [address] [place] [address] Phone Care Team Providers Care Internet Marketing Analyst Name Role Phone Kiersten Machuca Unavailable Unavailable Advance Directives Directive Yes / No Effective Date File Name No Information Encounters Encounter Description Practice Location Reason(s) For Visit Diagnoses Date Provider Providers Copied on Encounter [facility], [address], [place], [place], [id number], [place] tel:[phone] [facility] No Information Sep-2 5-200 5 Brigette Burch. [address], [place], [place], [facility], [place]. tel:[phone] Referring Provider: Kiersten Wagoner, [address], [place], [place], [facility]. tel:[phone] Family History Family Member Type Diagnosis Age At Onset No Information Payers Payer name Insurance type Covered libertarian ID Authoriza tion(s) [facility] [id number] Social History Type Description Quantity Date Captured Comments Sex Female Smoking Status No Information Chief Complaint And Reason For Visit No Information Reason For Referral Reason For Referral No Information History Of Present Illness Encounter Date Complaint History Of Prese nt Illness No Information Functional Status Date Functional Assessmen t No Information Instructions Date Instruction Additional Infor mation No Information Assessments Type Assessment Date No Information Patient Care Teams Name Effective Dates (start - stop) Status Members No Information
--- OUTSIDE RECORDS SUMMARY | 2024-09-29 08:08 | XMS_ITS | Clinical Summary ---
Author Organization [facility] Address [address] [place] [address] Care Team Providers Care Chimney Sweeper Name Role Phone Lew Cary MD Primary Care Provider [phone] Allergies Active Allergy Reactions Criticality Noted Date Comments Adhesive Other (See comments) Low 12/17/2022 Skin iirtation Levofloxacin Vomiting Low 12/17/2022 Penicillins Other (See comments) Low 12/17/2022 Had reaction as a child Medications Mounjaro 12.5 mg/0.5 mL pen injector 3 Active rosuvastatin (CRESTOR) 20 mg tablet Take 1 tablet (20 mg total) by mouth daily 3 Active metFORMIN XR (GLUCOPHAGE XR) 500 mg 24 hr tablet Take 2 tablets (1,000 mg total) by mouth 2 (two) times a day 3 Active lisinopriL (PRINIVIL,ZESTR [place]) 10 mg tablet Take 1 tablet (10 mg total) by mouth daily 3 Active TRESIBA 200 unit/mL (3 mL) pen for injection INJECT 130 UNITS SUBCUTANEOUS EVERY EVENING 3 Active Farxiga 10 mg tablet Take 1 tablet (10 mg total) by mouth every morning 3 Active citalopram (CeleXA) 40 mg tablet Take 1 tablet (40 mg total) by mouth every morning 3 Active Active Problems No known active problems Surgical History Surgery Date Site/Laterality Comments HYSTERECTOMY APPENDECTOMY BLADDER SURGERY REPLACEMENT TOTAL KNEE BILATERAL COLONOSCOPY Medical History Medical History Date Comments Hyperlipidemia Type 2 diabetes mellitus (HCC) Family History Medical History Relation Name Comments bile duct cancer Brother Colon cancer Paternal Grandmother Relation Name Status Comments Brother Paternal Grandmother Social History Tobacco Use Types Packs/Day Years Used Date Smoking Tobacco: Never Tobacco Cessation:Counseling Given: Not Answered AUDIT-C Answer Date Recorded Q1: How often do you have a drink containing alc ohol? 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 Gender Identity Not on file Sexual Orientation Not on file Obstetrics History Last Filed Vital Signs Vital Sign Reading Time Taken Comments Blood Pressure 117/69 12/17/2022 1:50 PM CDT Pulse 71 12/17/2022 1:50 PM CDT Temperature 36.6 C (97.8 F) 12/17/2022 11:43 AM CDT Respiratory Rate 18 12/17/2022 1:50 PM CDT Oxygen Saturation 95% 12/17/2022 1:50 PM CDT Inhaled Oxygen Concentration - - Weight 95.7 kg (211 lb) 12/17/2022 11:43 AM CDT Height 167.6 cm (5' 6 ) 12/17/2022 11:43 AM CDT Body Mass Index 34.06 12/17/2022 11:43 AM CDT Plan of Treatment Health Maintenance Due Date Last Done Comments Breast Cancer Screening-Mammogram 1962 Colon Cancer Screening-Colonoscopy 1962 Depression Screening 1962 Hepatitis C Screening 1962 DTaP/Tdap/Td Vaccine (1 - Tdap) 1973 Hepatitis B Screening 1980 Regular Well Visit/Exam 18-64 1980 Zoster Vaccine (1 of 2) 2012 Covid-19 Vaccine (3 - 2023-2 5 season) 2024 10/07/2020, 09/16/2020 Influenza Vaccine (#1) 2024 Pneumococcal vaccine <65 Aged Out No longer eligible based on patient's age to complete this topic Insurance [employer] [facility] [place] [address] [employer] [facility] [place] [address] Advance Directives For more information, please contact: [phone] * Full Code (Latest Code Status on File) Date Activated Date Inactivated Comments 12/17/2022 11:30 AM 12/17/2022 6:04 PM Care Teams Chimney Sweeper Relationship Specialty Start Date End Date Lew Cary MD PCP - General Family Medicine 11/27/22
--- OUTSIDE RECORDS SUMMARY | 2024-09-29 08:08 | XMS_ITS | Referral Summary ---
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
[2024-09-29 09:28] LABS: Dexamethasone Suppression Test 1.19 ug/dL
== END 2024-09-29 08:00 | disposition home or self-care (01) ==
LOC: ANHLAB 08:00
PROVIDERS: PCP Family Medicine; Visit Provider Internal Medicine Endocrinology, Diabetes & Metabolism
DX: E27.8 Other specified disorders of adrenal gland (principal); K76.0 Fatty (change of) liver, not elsewhere classified; E11.65 Type 2 diabetes mellitus with hyperglycemia; E78.2 Mixed hyperlipidemia; R79.89 Other specified abnormal findings of blood chemistry
CPT/HCPCS: 36415; 80299; 82533

== ENCOUNTER 2024-09-30 08:41 | Outpatient (CLI) | payer BC, SELFPAY ==
--- NOTE | ~2024-09-30 | MR_ITS ---
EXAMINATION: MR MRCP wo/w con/w 3D wo ind DATE: 09/30/2024 10:05 INDICATION: Surveillance pancreatic lesion. TECHNIQUE: Magnetic resonance imaging (MRI) of the abdomen was performed without and with 19 mL Multi syed intravenous contrast. Sequences included coronal T2-weighted SS-FSE, coronal T2-weighted FS SS- FSE, coronal T2-weighted FS FIESTA, axial T2-weighted FS FIESTA, axial T2-weighted FIESTA, sagittal T 2-weighted SS-FSE, axial T1-weighted dual-echo FSPGR, axial T2-weighted SS-FSE, axial T1-weighted LAV A, axial T2-weighted STIR FSE. Thick-slab T2-weighted FRFSE-XL images were obtained for magnetic reso nance cholangiopancreatography (MRCP). Rotating maximum intensity projection 3-D reconstructions of t he volumetric data were created by the technologist. Postcontrast sequences included a time course of axial T1-weighted LAVA. COMPARISON: 10/08/2023 FINDINGS: ABDOMEN MRI: Heart size is normal. No pericardial or pleural effusion. Unchanged 8 mm T2 hyperintense nonenhancing cyst at the dome of the liver. Gallbladder, spleen and left adrenal gland are normal. No significant change in a 1.8 cm right adrenal mass with signal dropout on opposed phase imaging consistent with a denoma. No significant change in multiple bilateral T2 hyperintense nonenhancing cysts at both kidney s, the largest measuring 4.3 cm at the lower pole of the right kidney. No significant interval change in 7 mm and 5 mm T2 hyperintense nonenhancing cystic lesions at the body of the pancreas. Pancreas o therwise normal with no abnormally enhancing lesions identified. Visualized bowels are unremarkable w ith no obstruction. No pathologically enlarged abdominal or upper pelvic lymphadenopathy. T1 hyperint ense fat saturating hemangioma at T12. Mild to moderate thoracic and lumbar spondylosis with multiple Schmorl's nodes. ABDOMEN MRCP: Common bile duct measures up to 5 mm in maximal diameter which is normal. No intraluminal filling def ects to suggest choledocholithiasis. No intrahepatic biliary ductal dilation. IMPRESSION: 1. No signal interval change in a couple simple appearing T2 hyperintense nonenhancing cystic lesions at the body of the pancreas measuring 7 mm and 5 mm. Recommend continued annual follow-up pre and po stcontrast MRI or CT. ABDOMEN MRCP: IMPRESSION: 1. Reviewed, dictated and finalized at location L. SMOKER IMPRESSION: 1. No signal interval change in a couple simple appearing T2 hyperintense nonen hancing cystic lesions at the body of the pancreas measuring 7 mm and 5 mm. Rec ommend continued annual follow-up pre and postcontrast MRI or CT. ABDOMEN MRCP: IMPRESSION: 1.
--- OUTSIDE RECORDS SUMMARY | 2024-09-30 09:03 | XMS_ITS | Referral Summary ---
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
--- OUTSIDE RECORDS SUMMARY | 2024-09-30 09:03 | XMS_ITS | Clinical Summary ---
Author Organization [facility] Address [facility] [place] [address] Care Team Providers Care Manager Beauty Name Role Phone Lew Cary MD Primary Care Provider [phone] Allergies Active Allergy Reactions Criticality Noted Date [...] patient's age to complete this topic Insurance [facility] [employer] [facility] [employer] [place] [employer] [facility] Care Teams Manager Beauty Relationship Specialty Start Date End Date Lew Cary MD [address] [place] [address] PCP - General FAMILY PRACTICE 01/13/22
--- OUTSIDE RECORDS SUMMARY | 2024-09-30 09:03 | XMS_ITS | Clinical Summary ---
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
--- OUTSIDE RECORDS SUMMARY | 2024-09-30 09:03 | XMS_ITS | Patient Health Summary ---
Author Organization [facility] Address [address] [place] [place] [address] Care Team Providers Care Assistant Corporation Counsel Name Role Phone Lew Cary MD Primary Care Provider [phone] Note from [facility],non-owned Affiliates and Associated Physician Practices is amultiple site organization consisting of ambulatory clinics and hospital sitesin [place], [place], [place] and [place]. This disclosure is being madepursuant to the Care Everywhere program and may not contain all information available regarding this patient. Last updated 18.[facility] Active Problems Problem Noted Date Diagnosed Date NAFLD (nonalcoholic fatty liver disease) 022 Social History Tobacco Use Types Packs/Day Years Used Date Smoking Tobacco: Never Assessed Sex and Gender Information Value Date Recorded Sex Assigned at Not on file Gender Identity Not on file Sexual Orientation Not on file Procedures * OR LIVER ELASTOGRAPHY(Performed 03/27/2022) Performed for Nonalcoholic fatty liver disease Results * OR LIVER ELASTOGRAPHY (03/27/2022 9:42 AM CDT) Narrative [...] patients with nonalcoholic fatty liver disease. Gastroenterology 2019;156:4117-6196. Osiris MS, Juan R, Van Elisha ML, [...] FIB4 score (Kateuke et al. Hepatology Communications 2019;3:3590-6882) or NAFLD Fibrosis score (Sánchez et al. Clinical Gastroenterology and Hepatology 2019;17:0755-6969. from routine clinical data. 3. Liver stiffness [...] as additional supporting data becomes available. [email or web address] Dario Christian MD PROCEDURE/ MINOR SURGICAL ORDERABLES Care Teams Assistant Corporation Counsel Relationship Specialty Start Date End Date Lew Cary MD [address] [place] [address] PCP - General 03/28/22
--- OUTSIDE RECORDS SUMMARY | 2024-09-30 09:03 | XMS_ITS | Clinical Summary ---
Author Organization [facility] Address [address] [place] [address] Care Team Providers Care Floor Specialist Name Role Phone Lew Cary MD Primary Care Provider [phone] Source Comments [facility],non-[facility] Affiliates and Associated Physician Practices is amultiple site organization consisting of ambulatory clinics and hospital sitesin [place], [place], [place] and [place]. This disclosure is being madepursuant to the Care Everywhere program and may not contain all information available regarding this patient. Last updated 18.[facility] Active Problems Problem Noted Date Diagnosed [...] age to complete this topic Care Teams Floor Specialist Relationship Specialty Start Date End Date Lew Cray MD [address] [place] [address] PCP - General 03/28/22
--- OUTSIDE RECORDS SUMMARY | 2024-09-30 09:03 | XMS_ITS | Referral Summary ---
Author Organization [facility] Address [address] [place] [address] Care Team Providers Care Coat Presser Name Role Phone Lew Cary MD Primary Care Provider [phone] Source Comments [facility],non-[facility] Affiliates and Associated Physician Practices is amultiple site organization consisting of ambulatory clinics and hospital sitesin [place], [place], [place] and [place]. This disclosure is being madepursuant to the Care Everywhere program and may not contain all information available regarding this patient. Last updated 18.[facility] Active Problems Problem Noted Date Diagnosed Date [...] of Treatment Not on file Care Teams Coat Presser Relationship Specialty Start Date End Date Lew Cary MD [address] [place] [address] PCP - General 03/28/22
--- OUTSIDE RECORDS SUMMARY | 2024-09-30 09:03 | XMS_ITS | Continuity of Care Document ---
Author Organization [facility] Address [address] [place] [address] [address] [place] [address] Phone Care Team Providers Care Chemical Laboratory Technician Name Role Phone Kiersten Machuca Unavailable Unavailable Advance Directives Directive Yes / No Effective Date File Name No Information Encounters Encounter Description Practice Location Reason(s) For Visit Diagnoses Date Provider Providers Copied on Encounter [facility], [address], [place], [place], [id number], [place] tel:[phone] [facility] No Information Sep-2 5-200 5 Brigette Burch. [address], [place], [place], [facility], [place]. tel:[phone] Referring Provider: Kiersten Wagoner, [address], [place], [place], [facility]. tel:[phone] Family History Family Member Type Diagnosis Age At Onset No Information Payers Payer name Insurance type Covered constitution party ID Authoriza tion(s) [facility] [id number] Social History Type Description Quantity Date Captured [...]
== END 2024-09-30 08:42 | disposition home or self-care (01) ==
PROVIDERS: PCP Family Medicine; Visit Provider Nurse Practitioner
DX: K86.2 Cyst of pancreas (principal)
CPT/HCPCS: 74183; 76376; A9577

== ENCOUNTER 2024-10-06 10:41 | Outpatient (CLI) | payer BC, SELFPAY ==
[2024-10-06 11:32] LABS: Add Urine Microscopic? YES; Appearance Urine Cloudy (Clear); Bacteria Urine None Seen /hpf; Bilirubin Urine Negative (Negative); Blood Urine Trace (Negative); Color Urine Yellow (Yellow); Glucose Urine UA 2+ mg/dL (Negative); Ketones Urine Negative (Negative); Leukocyte Esterase Ur 1+ LEU/UL (Negative); Need Manual Microscopic Reviewed; Nitrate Urine Negative (Negative); Non Pathogenic Casts 0-2; Protein Urine Trace mg/dL (Negative); Specific Grav Ur 1.037 (1.001-1.035); Squamous Epithelial Cell Urine None Seen /hpf (Few); Urobilinogen Urine 0.2 mg/dL (<2.0); WBC Urine >100 /hpf (0-3); pH Urine 5.5 (5.0-9.0)
[2024-10-06 11:36] LABS: Alanine Aminotransferase 28 U/L (6-35); Albumin Level 4.5 g/dL (3.5-5.1); Alkaline Phosphatase 59 U/L (38-126); Aspartate Amino Transferase 29 U/L (14-36); Bilirubin,Total 0.6 mg/dL (0.2-1.3); INR 0.9; Prothrombin Time 12.8 Seconds (11.1-14.7)
--- OUTSIDE RECORDS SUMMARY | 2024-10-06 12:09 | XMS_ITS | Clinical Summary ---
Author Organization [facility] Address [facility] [address] [place] [address] Care Team Providers Care Anesthesiology Technologist Name Role Phone Lew Cary MD Primary Care Provider [phone] Allergies Active Allergy Reactions Criticality Noted Date [...] patient's age to complete this topic Insurance [facility] [employer] [facility] [employer] [place] [employer] [facility] Care Teams Anesthesiology Technologist Relationship Specialty Start Date End Date Lew Cary MD [address] [place] [address] PCP - General FAMILY PRACTICE 01/13/22
--- OUTSIDE RECORDS SUMMARY | 2024-10-06 12:09 | XMS_ITS | Continuity of Care Document ---
Author Organization [facility] Address [address] [place] [address] [address] [place] [address] Phone Care Team Providers Care Landing Support Specialist Name Role Phone Kiersten Machuca Unavailable Unavailable Advance Directives Directive Yes / No Effective Date File Name No Information Encounters Encounter Description Practice Location Reason(s) For Visit Diagnoses Date Provider Providers Copied on Encounter [facility], [address], [place], [place], [id number], [place] tel:[phone] [facility] No Information Sep-2 5-200 5 Brigette Burch. [address], [place], [place], [place], [place]. tel:[phone] Referring Provider: Kiersten Wagoner, [address], [place], [place], [place]. tel:[phone] Family History Family Member Type Diagnosis Age At Onset No Information Payers Payer name Insurance type Covered republican ID Authoriza tion(s) [facility] [id number] Social History Type Description Quantity Date Captured [...]
--- OUTSIDE RECORDS SUMMARY | 2024-10-06 12:10 | XMS_ITS | Clinical Summary ---
Author Organization [facility] Address [address] [place] [address] Care Team Providers Care Cord Cutter Name Role Phone Lew Cary MD Primary Care Provider [phone] Source Comments [facility],non-[facility] Affiliates and Associated Physician Practices is amultiple site organization consisting of ambulatory clinics and hospital sitesin [place], [place], [place] and [place]. This disclosure is being madepursuant to the Care Everywhere program and may not contain all information available regarding this patient. Last updated 18.[facility] Active Problems Problem Noted Date Diagnosed Date [...] to complete this topic MENINGOCOCCAL (Group B) VACC INE SHARED DECISION-MAKING Aged Out No longer eligibl e based on patient's age to complete this topic MENINGOCOCCAL GROUPS A/C/Y/W VACCINE Aged Out No longer eligible b ased on patient's age to complete this topic PNEUMOCOCCAL VACCINE Aged Out No long er eligible based on patient's age to complete this topic Care Teams Cord Cutter Relationship Specialty Start Date End Date Lew Cary MD [address] [place] [address] PCP - General 03/28/22
--- OUTSIDE RECORDS SUMMARY | 2024-10-06 12:10 | XMS_ITS | Patient Health Summary ---
Author Organization [facility] Address [address] [place] [address] Care Team Providers Care Concrete Pipe Machine Operator Name Role Phone Lew Cary MD Primary Care Provider [phone] [facility],non-owned Affiliates and Associated Physician Practices is amultiple site organization consisting of ambulatory clinics and hospital sitesin [place], [place], [place] and [place]. This disclosure is being madepursuant to the Care Everywhere program and may not contain all information available regarding this patient. Last updated 18.[facility] Active Problems Problem Noted Date Diagnosed Date NAFLD (nonalcoholic fatty liver disease) 022 Social History Tobacco Use Types Packs/Day Years Used Date Smoking Tobacco: Never Assessed Sex and Gender Information Value Date Recorded Sex Assigned at Not on file Gender Identity Not on file Sexual Orientation Not on file Procedures * HI LIVER ELASTOGRAPHY(Performed 03/27/2022) Performed for Nonalcoholic fatty liver disease Results * HI LIVER ELASTOGRAPHY (03/27/2022 9:42 AM CDT) Narrative [...] patients with nonalcoholic fatty liver disease. Gastroenterology 2019;156:1090-2427. Osiris MS, Juan R, Van Elisha ML, [...] FIB4 score (Kateuke et al. Hepatology Communications 2019;3:3822-6393) or NAFLD Fibrosis score (Sánchez et al. Clinical Gastroenterology and Hepatology 2019;17:8627-5391. from routine clinical data. 3. Liver stiffness [...] change as additional supporting data becomes available. [email or web address] Dario Christian MD PROCEDURE/ MINOR SURGICAL ORDERABLES Care Teams Concrete Pipe Machine Operator Relationship Specialty Start Date End Date Lew Cary MD [address] [place] [address] PCP - General 03/28/22
--- OUTSIDE RECORDS SUMMARY | 2024-10-06 12:10 | XMS_ITS | Referral Summary ---
Author Organization [facility] Address [address] [place] [address] Care Team Providers Care Tool And Equipment Rental Clerk Name Role Phone Lew Cary MD Primary Care Provider [phone] Source Comments [facility],non-[facility] Affiliates and Associated Physician Practices is amultiple site organization consisting of ambulatory clinics and hospital sitesin [place], [place], [place] and [place]. This disclosure is being madepursuant to the Care Everywhere program and may not contain all information available regarding this patient. Last updated 18.[facility] Active Problems Problem Noted Date Diagnosed Date [...] of Treatment Not on file Care Teams Tool And Equipment Rental Clerk Relationship Specialty Start Date End Date Lew Cary MD [address] [place] [address] PCP - General 03/28/22
== END 2024-10-06 10:42 | disposition home or self-care (01) ==
LOC: ANHLAB 10:43
PROVIDERS: PCP Family Medicine; Visit Provider Nurse Practitioner
DX: R30.0 Dysuria (principal); K76.0 Fatty (change of) liver, not elsewhere classified
CPT/HCPCS: 36415; 80076; 81001; 85610; 87086

== ENCOUNTER 2025-03-31 09:46 | Outpatient (CLI) | payer BC, SELFPAY ==
--- OUTSIDE RECORDS SUMMARY | 2025-03-31 10:09 | XMS_ITS | Clinical Summary ---
Author Organization [facility] Address [facility] [address] [place] [address] Care Team Providers Care Washing Machine Loader And Puller Name Role Phone Lew Cary MD Primary Care Provider Allergies Active Allergy Reactions Criticality Noted Date [...] 3:33 PM CDT Height 165.1 cm (5' 5) 01/13/2022 3:33 PM CDT Body Mass Index 38.27 01/13/2022 3:33 PM CDT Plan of Treatment Health Maintenance Due Date Last Done Comments Colorectal Cancer Screening Colonoscopy (10 Years) 1962 Annual Physical 1965 Hepatitis C 1980 DTaP, Tdap and Td Vaccines ( 1 - Tdap) 1981 Mammogram Screening 2002 Pneumococcal Vaccine: 50+ Years (1 of 1 - PCV) 2012 Zoster Vaccines (1 of 2) 2012 COVID-19 Vaccine (3 - 2024-2 6 season) 2025 10/07/2020, 09/16/2020 RSV Immunization or 60+ Years (1 - [...] patient's age to complete this [place] [address] [employer] [facility] [employer] [facility] Care Teams Washing Machine Loader And Puller Relationship Specialty Start Date End Date Lew Cary MD [address] [place] [address] PCP - General FAMILY PRACTICE 01/13/22
--- OUTSIDE RECORDS SUMMARY | 2025-03-31 10:09 | XMS_ITS | Clinical Summary ---
Author Organization [facility] Address [address] [place] [address] Care Team Providers Care Asphalt Mixer Name Role Phone Lew Cary MD Primary Care Provider [phone] Allergies Active Allergy Reactions Criticality Noted Date [...] Date Comments Hyperlipidemia Type 2 diabetes mellitus Family History Medical History Relation Name Comments [...] on file Legal Sex Female 4:14 AM TRANSCRIBING OPERATOR HEAD Gender Identity Not on file Sexual Orientation [...] 11:43 AM CDT Height 167.6 cm (5' 6) 12/17/2022 11:43 AM CDT Body Mass Index [...] season) 2024 10/07/2020, 09/16/2020 Influenza Vaccine (#1) 2025 Pneumococcal vaccine <65 Aged Out No longer eligible based on patient's age to complete this topic Insurance [employer] Advance Directives For more information, please contact: [phone] * Full Code (Latest Code Status on File) Date Activated Date Inactivated Comments 12/17/2022 11:30 AM 12/17/2022 6:04 PM Care Teams Asphalt Mixer Relationship Specialty Start Date End Date Lew aCry MD PCP - General Family Medicine 11/27/22
--- OUTSIDE RECORDS SUMMARY | 2025-03-31 10:09 | XMS_ITS | Clinical Summary ---
Author Organization [facility] Address [address] [place] [address] Care Team Providers Care Glove Factory Sewer Name Role Phone Lew Cary MD Primary Care Provider [phone] Source Comments [facility],non-[facility] Affiliates and Associated Physician Practices is amultiple site organization consisting of ambulatory clinics and hospital sitesin [place], [place], [place] and [place]. This disclosure is being madepursuant to the Care Everywhere program and may not contain all information available regarding this patient. Last updated 18.[facility] Active Problems Problem Noted Date Diagnosed Date NAFLD (nonalcoholic fatty liver disease) 022 Overview (03/28/2022): 03/27/22 Fibroscan CAP 382, LSM 4.3 kPa Social History Tobacco Use Types Packs/Day Years Used Date Smoking Tobacco: Never Assessed Comments Unknown Sex and Gender Information Value Date Recorded Sex Assigned at Not on file Legal Sex Female 8:39 AM PIN MAKER Gender Identity Not on file Sexual Orientation [...] SCREENING 1962 LIPID TESTING 1962 MAMMOGRAM 1962 HIV SCREENING 1977 HEPATITIS C SCREENING 07/10/1980 DTAP/TDAP/TD VACCINES (1 - Tdap) 1981 PAP SMEAR 1983 PNEUMOCOCCAL VACCINE 50+ (1 of 1 - PCV) 2012 ZOSTER VACCINE (1 of 2) 2012 COVID-19 VACCINE (1 - 2023-2 5 season) 2024 DEPRESSION SCREENING 07/28/2024 INFLUENZA VACCINE (#1) 2025 Respiratory Syncytial Virus (RSV) Vaccine Pt: or [...] patient's age to complete this topic Insurance [employer] Care Teams Glove Factory Sewer Relationship Specialty Start Date End Date Lew Cary MD [address] [place] [address] PCP - General 03/28/22
[2025-03-31 10:22] LABS: Hematocrit 39.9 % (37.0-47.0); Hemoglobin 13.4 g/dL (12.0-15.0); Immature Granulocyte Percent A 0.4 % (0-0.5); Lymphocytes Absolute Auto 2.19 K/mm3 (0.9-3.2); Mean Corpuscular HGB Conc 33.6 g/dl (32-36); Mean Corpuscular Hemoglobin 31.9 pg (26-34); Mean Corpuscular Volume 95.0 fl (80-100); Nucleated Red Blood Cells Absolute Auto 0.000 K/mm3 (0.0-0.012); Nucleated Red Blood Cells Perc 0.0 % (0.0-0.2); Platelet Count Result 261 k/mm3 (150-375); Red Blood Count 4.20 M/mm3 (4.2-5.4); White Blood Count 7.9 K/mm3 (4.5-10.0)
[2025-03-31 10:38] LABS: INR 1.0; Prothrombin Time 12.9 Seconds (11.1-14.7)
[2025-03-31 10:44] LABS: Alanine Aminotransferase 40 U/L (6-35); Albumin Level 4.1 g/dL (3.5-5.1); Alkaline Phosphatase 56 U/L (38-126); Anion Gap 8 mmol/L (4-12); Aspartate Amino Transferase 43 U/L (14-36); Bilirubin,Total 0.6 mg/dL (0.2-1.3); Blood Urea Nitrogen 10 mg/dL (7-17); Calcium 9.1 mg/dL (8.4-10.2); Carbon Dioxide 25 mmol/L (22-30); Chloride 105 mmol/L (98-107); Cholesterol 132 mg/dL (0-200); Estimated Glomerular Filt Rate > 60; Glucose 136 mg/dL (65-110); HDL Direct 49 mg/dL; Potassium 4.0 mmol/L (3.4-5.0); Sodium 138 mmol/L (137-145); Total Protein 7.2 g/dL (6.3-8.2); Triglycerides 104 mg/dL (<150)
[2025-03-31 11:01] LABS: Free T4 Free Thyroxine 1.08 ng/dL (0.78-2.19)
[2025-03-31 11:20] LABS: Thyroid Stimulating Hormone 1.810 uIU/mL (0.465-4.680)
[2025-03-31 11:39] LABS: Vitamin B12 394.0 pg/mL (239-931)
[2025-03-31 14:17] LABS: MALB Creatinine Ratio 56.9 mg/g (0-30)
[2025-04-06 18:08] LABS: GAD-65 Antibody <5.0 U/mL (0.0-5.0)
== END 2025-03-31 09:47 | disposition home or self-care (01) ==
PROVIDERS: PCP Family Medicine; Referring Provider Nurse Practitioner; Visit Provider Nurse Practitioner Family
DX: K76.0 Fatty (change of) liver, not elsewhere classified (principal); E11.65 Type 2 diabetes mellitus with hyperglycemia; E78.49 Other hyperlipidemia
CPT/HCPCS: 36415; 80053; 80061; 82043; 82306; 82607; 84439; 84443; 84681; 85025; 85610; 86341